=== PATIENT | male | born 1950 | race Caucasian/White ===

== ENCOUNTER → 2019-03-10 | Outpatient (CLI) | payer MEDICARE ==
[~2019-03-10] MED LIST: ATOR10TA60 PO; LISI-338 PO; METO-239 PO; REGADENOSON 0.4 MG/5 ML DISP.SYRIN. IV ONE; TAMS0.4C2 PO
--- NOTE | 2019-03-10 09:07 | CARD ---
MR#: [id number] Date of Study: 03/10/2019 Ordering Physician: LEIGH GRIMM, Referring Physician: LEIGH GRIMM Tech: Monica Shook RDCS APPROVED REPORT EXAM: Two-dimensional and M-mode echocardiogram with Doppler and color Doppler. Other Information Quality : GoodHR: 70bpm Rhythm : NSR INDICATION Chest Pain 2D DIMENSIONS RVDd4.0 (2.9-3.5cm)Left Atrium(2D)4.8 (1.6-4.0cm) IVSd1.4 (0.7-1.1cm)Aortic Root(2D)2.9 (2.0-3.7cm) LVDd4.9 (3.9-5.9cm)LVOT Diameter2.0 (1.8-2.4cm) PWd0.7 (0.7-1.1cm)IVSs2.0 (0.8-1.2cm) LVDs3.1 (2.5-4.0cm)FS (%) 36.2 % PWs1.2 (0.8-1.2cm)SV75.1 ml LVEF(%)65.7 (>50%) Aortic Valve AoV Peak Donovan.116.1cm/sAoV VTI26.6cm AO Peak GR.5.4mmHgLVOT Peak Donovan.74.6cm/s LVOT VTI 17.93cmAO Mean GR.3mmHg DYLAN (VMAX)1.57gj6UCA (VTI)2.19cm2 Mitral Valve MV E Aybrncfj72.4cm/sMV DECEL DGUZ558wg MV A Kvcpzzry55.4cm/sMV BAP30kf E/A Ratio1.3MVA (PHT)3.24cm2 TDI E/Lateral E'5.9E/Medial E'8.2 Pulmonary Valve PV Peak Cqvstckq135.7cm/sPV Peak Grad.6mmHg Tricuspid Valve TR P. Hxubialt935ot/sRAP ZZWDBPLE8smCs TR Peak Gr.59yjYdWPDQ45rtBo LEFT VENTRICLE The left ventricle is normal size. There is mild concentric left ventricular hypertrophy. The left ve ntricular systolic function is normal. The Ejection Fraction is 55-60%. There is normal LV segmental wall motion. Transmitral Doppler flow pattern is Grade II-pseudonormal filling dynamics. RIGHT VENTRICLE The right ventricle is mildly dilated. There is normal right ventricular wall thickness. The right ve ntricular systolic function is normal. ATRIA The left atrium is mildly dilated. The right atrium is moderately dilated. The interatrial septum is intact with no evidence for an atrial septal defect or patent foramen ovale as noted on 2-D or Dopple r imaging. AORTIC VALVE The aortic valve is trileaflet. The aortic valve is mildly calcified. Doppler and Color Flow revealed no significant aortic regurgitation. There is no significant aortic valvular stenosis. MITRAL VALVE The mitral valve is mildly thickened. There is no evidence of mitral valve prolapse. There is no mitr al valve stenosis. Doppler and Color-flow revealed trace to mild mitral regurgitation. TRICUSPID VALVE The tricuspid valve is normal in structure and function. Doppler and Color Flow revealed mild tricusp id regurgitation. The PA pressure was estimated at 24 mmHg. There is no tricuspid valve prolapse or v egetation. There is no tricuspid valve stenosis. PULMONIC VALVE The pulmonary valve is normal in structure and function. Doppler and Color Flow revealed trace pulmon ic valvular regurgitation. There is no pulmonic valvular stenosis. GREAT VESSELS The aortic root is normal in size. The ascending aorta is normal in size. The IVC is normal in size a nd collapses >50% with inspiration. PERICARDIAL EFFUSION There is no evidence of significant pericardial effusion. Critical Notification Critical Value: No <Conclusion> The left ventricular systolic function is normal. The Ejection Fraction is 55-60%. There is normal LV segmental wall motion. Trace to mild mitral regurgitation. Mild tricuspid regurgitation. The PA pressure was estimated at 24 mmHg. There is no evidence of significant pericardial effusion. Signed by : Leigh Grimm, Electronically Approved : 03/10/2019 09:07:32
--- NOTE | 2019-03-10 11:42 | RAD ---
MR#: [id number] Date of Study: 03/10/2019 Ordering Physician: LEIGH FISH, Referring Physician: ROSARIO BARBER Tech: JULISSA Schaeffer APPROVED REPORT Test Type: Pharmacological Stress Nurse/Tech: Iris Emerson R.N. Test Indications: CAD, dyspnea Cardiac History: CABG 2008, htn Medications: see ehr Medical History: see ehr Resting ECG: SR Resting Heart Rate: 62 bpm Resting Blood Pressure: 133/77mmHg Pretest Chest Pain: No chest pain Nurse/Tech Notes lungs cta, heart tones regular Consent: The procedure was explained to the patient in lay terms. Informed consent was witnessed. Eliud eout was entered into [facility]. History and Stress Test performed by ORI Mahan, IRVING (R) (N) Pharm. Details Pharmacologic stress testing was performed using 0.4mg per 5ml of regadenoson given intravenously ove r 7-10 seconds. Stress Symptoms No chest pain or symptoms. POST EXERCISE Reason for Termination: Infusion complete Target HR: No Max HR: 78 bpm Max Blood Pressure: 136/76mmHg Chest Pain: No. Arrhythmia: No. ST Change: No. INTERPRETATION Stress EKG Conclusion: The resting EKG shows a sinus rhythm with poor R-wave progression and nonspeci fic T-wave changes. The stress EKG shows no significant changes from baseline. No EKG evidence of stress-induced ischemia. Imaging Protocol IMAGE PROTOCOL: Rest Tc-99m/stress Tc-99m 1 day Rest: Stress: Viability: Radiopharm.Tc99m BeubmtmgkVa65g Sestamibi Dose10.8mCi 33mCi Duration 15min. 13min. Img Date 03/10/2019 03/10/2019 Inj-Img Yzaw21acc. 60min. Rest Admin Site:IV - Right AntecubitalAdministrator:JULISSA Schaeffer Stress Admin Site: IV - Right AntecubitalAdministrator: ORI Mahan, ARRT (R)(N) STRESS DATA End Diast. Vol.117.0mlLVEDV index BSA50.0ml End Syst. Vol.33.0mlLVESV index BSA14.0ml Myocardial Vhiu841.0gEject. Qrctgbmg91.0% Stress Scores Regional WT0.00Summed WT2.00 Regional WM0.00Summed WM5.00 LV Perfusion The stress scans showed no significant defects. The rest scans showed no significant defects. Nuclear imaging shows no reversible ischemia or infarct. Wall Motion Left ventricular systolic function is normal with no regional wall motion abnormalities and an ejecti on fraction of greater than 70%. LV Perf. Quant 17 Seg. SSS1.00 17 Seg. SRS1.00 17 Seg. SDS1.00 Stress Defect Extent (% LAD)0.00Rest Defect Extent (% LAD)0.00Rev. Defect Extent (% LAD)0.00 Stress Defect Extent (% LCX) 7.50Rest Defect Extent (% LCX)7.50Rev. Defect Extent (% LCX)6.30 Stress Defect Extent (% RCA)0.00Rest Defect Extent (% RCA)0.00Rev. Defect Extent (% RCA)0.00 Stress Defect Extent (% ALEX)1.30Rest Defect Extent (% ALEX)1.30Rev. Defect Extent (% ALEX)1.10 Conclusion 1. No EKG evidence of stress-induced ischemia. 2. Nuclear imaging shows no reversible ischemia or infarct. 3. Normal left ventricular systolic function with an ejection fraction of greater than 70%. 4. Low risk Lexiscan nuclear stress test. Signed by : Robi Hamilton MD Electronically Approved : 03/10/2019 11:41:40
--- NOTE | 2019-03-13 09:56 | RAD ---
MR#: [id number] Date of Study: 03/10/2019 Ordering Physician: LEIGH FISH, Referring Physician: LEIGH FISH Tech: Stefany Donovan RDMS, RVT APPROVED REPORT Patient Location: OUT-PATIENT Indications PAD VELOCITY AND DOPPLER WAVEFORM ANALYSIS RIGHT cm/secWaveformSeverity LEFT cm/secWaveform Severity pCFA 107.9TriphasicpCFA 104.4Triphasic Prof Fem Art. 103.7MonophasicProf Fem Art. 57.9Monophasic Fem Art Prox. 119.8TriphasicFem Art Prox. 121.9Triphasic Fem Art Mid. 113.0TriphasicFem Art Mid. 91.2Triphasic Fem Art Dist. 106.0TriphasicFem Art Dist. 76.2Triphasic Pop Art(Fossa) 99.5TriphasicPop Art(AK) 78.9Triphasic ASBESTOS SHINGLE INSPECTOR Mid.95.0TriphasicPTA Mid.104.4Triphasic ASBESTOS SHINGLE INSPECTOR Dist. 83.0TriphasicPTA Dist. 136.0Triphasic Per Art Mid. 69.0BiphasicPer Art Mid. 64.9Biphasic ТАТЬЯНА Prox. 74.0TriphasicATA Prox. 80.0Biphasic DPA 105TriphasicDPA 125Biphasic Findings Grayscale images of the bilateral common femoral, profunda, superficial femoral, popliteal and below- knee vessels are grossly unremarkable. There is mild diffuse intimal hyperplasia Spectral waveforms and color Doppler of the bilateral lower extremity arterial vessels are grossly wi thin normal limits with mostly triphasic and biphasic waveforms and three-vessel runoff below the kne e. No focal high-grade stenosis is identified. Critical Notification Critical Value: No <Conclusion> No significant lower extremity arterial disease. Signed by : Grover Parks, Electronically Approved : 03/13/2019 09:55:57
== END | disposition home or self-care (01) ==
LOC: NM 07:45
PROVIDERS: ATTEND Internal Medicine Cardiovascular Disease
DX: I08.3 Combined rheumatic disorders of mitral, aortic and tricuspid valves (principal); I10 Essential (primary) hypertension; I73.9 Peripheral vascular disease, unspecified; Z95.1 Presence of aortocoronary bypass graft
CPT/HCPCS: 78452; 93017; 93306; 93925; A9500; J2785

== ENCOUNTER → 2020-04-18 | Outpatient (CLI) | payer MEDICARE ==
[2019-06-21 15:00] VITALS: BP 160/84
[~2020-04-18] MED LIST changes: +ALLO100T PO; +ASPI325T11 PO; +ASPI81TA50 PO; +ATOR40TA59 PO; +CLOP75TA PO; +METO50TA4 PO; +MULT-505 PO; -REGADENOSON 0.4 MG/5 ML DISP.SYRIN. IV ONE
--- NOTE | 2020-04-19 10:27 | RAD ---
MR#: [id number] Date of Study: 04/18/2020 Ordering Physician: LEIGH FISH, Referring Physician: LEIGH FISH, Tech: Arely Charles, HELEN, RVT, RTR APPROVED REPORT Patient Location: OUT-PATIENT Laterality:Bilateral Indications Bruit Doppler Spectral Velocity Analysis Right Left pCCA 113/18 cm/spCCA 110/25 cm/s mCCA 104/21 cm/smCCA 110/28 cm/s dCCA 95/21 cm/sdCCA 100/21 cm/s Bulb 101/25 cm/sBulb 71/19 cm/s ECA 125/36 cm/sECA 171/21 cm/s pICA 106/26 cm/spICA 241/69 cm/s Faina 106/37 cm/smICA 197/67 cm/s dICA 115/33 cm/sdICA 126/49 cm/s Vert. 70/20 cm/sVert. 56/15 cm/s ICA/CCA 1.10ICA/CCA 2.19 Findings On the right grayscale which demonstrate mild diffuse atherosclerosis. Overall there is mild stenosi s of less than 50% based on velocity criteria in the internal carotid artery. Probable greater than 70% stenosis involving the right external carotid artery. Antegrade vertebral velocities with normal ICA to CCA ratios. On the left side there is likely a greater than 70% stenosis involving the proximal internal carotid artery with elevated ICA to CCA ratios of 2.2. The vertebral velocities are antegrade. The external carotid artery likely has mild to moderate disease. Critical Notification Critical Value: No <Conclusion> 1. Heavy calcification of the left carotid bulb with likely greater than 70% stenosis involving the internal carotid artery. Recommend further evaluation with a CT angiography of the head and neck. 2. Mild to moderate right internal carotid artery disease. Signed by : Grover Parks, Electronically Approved : 04/18/2020 12:59:32
== END ==
LOC: US 09:23 → EDBD 10:00
PROVIDERS: ATTEND Internal Medicine Cardiovascular Disease
DX: I65.23 Occlusion and stenosis of bilateral carotid arteries (principal); I25.10 Atherosclerotic heart disease of native coronary artery without angina pectoris
CPT/HCPCS: 93880

== ENCOUNTER → 2020-05-14 | Outpatient (CLI) | payer MEDICARE ==
[2019-06-21 15:00] VITALS: BP 160/84
[~2020-05-14] MED LIST changes: +CONTRAST GIVEN. MC PRN; +IOHEXOL 300 MG/ML 100ML VIAL. IV ONE; +REGADENOSON 0.4 MG/5 ML DISP.SYRIN. IV ONE
--- NOTE | 2020-05-14 14:11 | RAD ---
MR#: [id number] Date of Study: 05/14/2020 Ordering Physician: LEIGH FISH Referring Physician: ROSARIO BARBER Tech: RT Kristen Fritz) (N) APPROVED REPORT Test Type: Pharmacological Stress Nurse/Tech: DIPESH TURNER Test Indications: CHF Cardiac History: CHF, HTN, CABG, STENT- SEE EMR Medications: SEE EMR Medical History: SEE EMR Resting ECG: SR W/ 1ST DEGREE AVB Resting Heart Rate: 57 bpm Resting Blood Pressure: 167/81mmHg Pretest Chest Pain: No chest pain Nurse/Tech Notes S1S2, LUNGS CTA, DENIED CP OR SOA. VSS. Consent: The procedure was explained to the patient in lay terms. Informed consent was witnessed. Eliud eout was entered into [facility]. History and Stress Test performed by RT Scott (R) (N) Pharm. Details Pharmacologic stress testing was performed using 0.4mg per 5ml of regadenoson given intravenously ove r 7-10 seconds. Stress Symptoms VSS. PT C/O SOA BRIEFLY DURING TESTING, RESOLVED QUICKLY. DENIED CP. PT TOLERATED WELL. POST EXERCISE Reason for Termination: Infusion complete Max HR: 67 bpm Max Blood Pressure: 179/60mmHg Blood Pressure response to exercise: Normal blood pressure response during stress. Heart Rate response to exercise: WNL Chest Pain: No. Arrhythmia: No. NO SIGNIFICANT CHANGE FROM BASELINE EKG. ST Change: No. INTERPRETATION Stress EKG Conclusion: Baseline EKG showed sinus rhythm. No ischemic changes at peak stress. No arr hythmias. Rest: Stress: Viability: Radiopharm.Tc99m VljjaawezIl04a Sestamibi Aklp22lPv 30.4mCi Duration 15min. 15min. Img Date 05/14/2020 05/14/2020 Inj-Img Kjhf05ckk. 60min. Rest Admin Site:IV - Right AntecubitalAdministrator:RT Kristen Fritz)(N) Stress Admin Site: IV - Right AntecubitalAdministrator: RT Kristen Chavez)(N) STRESS DATA End Diast. Vol.117.0mlAv. Heart Rate63.0bpm End Syst. Vol.31.0mlCO Index BSA0.0L/min Myocardial Oxfc926.0gEject. Hmnnyeqi55.0% Stress Rates Pk. Fill Rate3.35EDV/secLVtime Pk. Fill 201.06msec Pk. Empty Rate3.28ESV/secLVtime Pk. Lebaf900.40msec 1/3 Pk. Fill1.19EDV/sec Stress Scores Regional WT0.00Summed WT0.00 Regional WM0.00Summed WM1.00 Study quality was good. Left Ventricular size was Normal at Rest and Stress. Lung uptake was . Left Ventricular ejection fraction is 71%. The rest and stress images show normal perfusion, normal contraction and thickening. LV Perf. Quant 17 Seg. SSS3.00 17 Seg. SRS2.00 17 Seg. SDS2.00 Stress Defect Extent (% LAD)0.00Rest Defect Extent (% LAD)0.00Rev. Defect Extent (% LAD)0.00 Stress Defect Extent (% LCX) 10.00Rest Defect Extent (% LCX)6.30Rev. Defect Extent (% LCX)0.00 Stress Defect Extent (% RCA)8.90Rest Defect Extent (% RCA)0.00Rev. Defect Extent (% RCA)0.00 Stress Defect Extent (% ALEX)3.50Rest Defect Extent (% ALEX)2.00Rev. Defect Extent (% ALEX)0.00 Conclusion 1. Regadenoson cardioisotope stress test did not show any evidence of ischemia or infarct. 2. Normal left ventricular systolic function with ejection fraction calculated at 71%. 3. Low risk for cardiac events. Signed by : Leigh Fish, Electronically Approved : 05/14/2020 14:10:49
--- NOTE | 2020-05-14 17:06 | RAD ---
CTA NECK History:Reason: CAROTID ARTERY STENOSIS / Spl. Instructions: IV OMNI 300 75 MLS / History: Technique: After bolus of intravenous contrast, volumetric CT data acquisition was acquired of the [facility]. Multiplanar reconstruction images to include MIP and 3-D reconstruction images are submitted. Exposure: One or more of the following individualized dose reduction techniques were utilized for thi s examination: 1. Automated exposure control 2. Adjustment of the mA and/or kV according to patient size 3. Use of iterative reconstruction technique. Comparison: None Any determination of stenosis is based on NASCET criteria. Findings: Aortic arch: Mild atheromatous plaque within the aortic arch and branch vessels. Common carotid arteries: No stenosis, occlusion or dissection. Internal carotid arteries: Dense calcified plaque within the right carotid bifurcation. Less than 50 percent narrowing of the right proximal internal carotid artery. Mild calcified plaque within the lef t carotid bifurcation. Irregularity with soft and calcified plaque at the origin of the left internal carotid artery. Ulcerative plaque within the proximal left internal carotid artery. 50 percent narro wing of the left proximal internal carotid artery. Mild additional calcified plaque. Tortuous right m id internal carotid artery. External carotid arteries: Narrowing of the right external carotid artery origin. Patent left externa l carotid artery. Vertebral arteries: Left vertebral artery arises from the aortic arch. Multifocal intracranial carotid siphon atheromatous calcified plaque with mild to moderate narrowing. Severe focal narrowing of the right paraclinoid internal carotid artery (series 5 image 986). Aplast ic right A1 segment. Patent anterior to indicating artery. Imaged lung apices are unremarkable. Soft tissues appear normal. Bones: Multilevel cervical spondylosis most prominent C5-C6 and C6-C7. Multilevel neuroforaminal narr owing. No high-grade canal stenosis. TMJ arthropathy. Impression: 1. Bilateral atheromatous plaque most prominent within the carotid bifurcations and carotid siphons. 2. 50 percent narrowing of the left proximal internal carotid artery with irregularity and ulcerativ e plaque. 3. Less than 50 percent narrowing of the right internal carotid artery origin. 4. Severe focal narrowing of the right paraclinoid internal carotid artery. 5. Additional multifocal mild to moderate narrowing of the bilateral internal carotid arteries withi n the head. Electronically signed by: Reggie Manning DO (05/14/2020 5:04 PM) [id number]
== END ==
LOC: CT 08:53
PROVIDERS: ATTEND Internal Medicine Cardiovascular Disease
DX: I65.23 Occlusion and stenosis of bilateral carotid arteries (principal); I77.1 Stricture of artery; I10 Essential (primary) hypertension; Z95.1 Presence of aortocoronary bypass graft; Z95.0 Presence of cardiac pacemaker
CPT/HCPCS: 70498; 78452; 93017; A9500; J2785; Q9967

== ENCOUNTER → 2020-08-06 | Outpatient (CLI) | payer MEDICARE ==
[2019-06-21 15:00] VITALS: BP 160/84
[~2020-08-06] MED LIST changes: -CONTRAST GIVEN. MC PRN; -IOHEXOL 300 MG/ML 100ML VIAL. IV ONE; -LISI-338 PO; +LISI-517 PO; -REGADENOSON 0.4 MG/5 ML DISP.SYRIN. IV ONE
== END ==
LOC: LAB 12:24
PROVIDERS: ATTEND Internal Medicine Cardiovascular Disease
DX: Z01.812 Encounter for preprocedural laboratory examination (principal); R94.39 Abnormal result of other cardiovascular function study; Z20.822 Contact with and (suspected) exposure to COVID-19
CPT/HCPCS: U0003

== ENCOUNTER → 2020-09-09 | Outpatient (CLI) | payer MEDICARE ==
[2020-08-10 08:20] VITALS: BP 109/64
[~2020-09-09] MED LIST changes: +ASPI-630 PO; +DOCU-153 PO; +HYDR-2761 PO; +MAG30ORA2 PO; +SPIR25TA5 PO
== END ==
LOC: LAB 08:53
PROVIDERS: ATTEND Surgery
DX: Z01.812 Encounter for preprocedural laboratory examination (principal); Z20.822 Contact with and (suspected) exposure to COVID-19
CPT/HCPCS: U0003; U0005

== ENCOUNTER 2020-09-11 05:56 | Inpatient (IN) | payer MEDICARE ==
[2020-09-11] VITALS (15 sets, daily range): BP systolic 120–153; BP diastolic 58–73
[~2020-09-11 05:56] MED LIST changes: -DOCU-153 PO; -HYDR-2761 PO; -MAG30ORA2 PO; +ROPIVacaine 0.5% PF 20 ML VIAL. ONE
[2020-09-11] MEDS ORDERED: MORPHINE SULFATE 2 MG/ML VIAL. IVP PRN (06:00)
[2020-09-11] MEDS ORDERED: IV RINGERS,LACTATED 1000ML 1,000 ML IV SCH (06:00)
[2020-09-11] MEDS ORDERED: HEPARIN SODIUM 5,000 UNIT in IV RINGERS,LACTATED 500ML 500 ML IRR ONE (06:00)
[2020-09-11] MEDS ORDERED: fentaNYL PF VIAL 100 MCG/2 ML VIAL IVP PRN ×2 (06:00)
[2020-09-11] MEDS ORDERED: PROCHLORPERAZINE 10 MG/2 ML VIAL. IVP PRN (06:00)
[2020-09-11] MEDS ORDERED: HYDROmorphone 2 MG/ML VIAL IVP PRN (06:00)
[2020-09-11 06:42] LABS: CALCIUM 8.8 mg/dL (8.5-10.1); CREATININE 1.1 mg/dL (0.7-1.3); GFR 66.2; POTASSIUM 4.1 mmol/L (3.5-5.1)
[2020-09-11] MEDS ORDERED: LIDOCAINE 1% Multi-Dose 20 ML VIAL. ONE (07:00)
[2020-09-11] MEDS ORDERED: SURGICEL FIBRILLAR 1X2 EACH. ONE (07:00)
[2020-09-11 07:17] LABS: BASO % 0 % (0-3); EOS # 0.5 x10^3/uL (0.0-0.7); EOS % 6 % (0-3); HEMATOCRIT 37.7 % (39.0-53.0); HEMOGLOBIN 12.8 g/dL (13.0-17.5); LYMPH # 2.1 x10^3/uL (1.0-4.8); LYMPH % 26 % (24-48); MEAN CORPUSCULAR HEMOGLOBIN 33 pg (25-35); MEAN CORPUSCULAR HGB CONC 34 g/dL (31-37); MEAN CORPUSCULAR VOLUME 98 fL (79-100); MONO # 0.7 x10^3/uL (0.0-1.1); MONO % 9 % (0-9); NEUT # 4.7 x10^3/uL (1.8-7.7); NEUT % 59 % (31-73); PLATELET COUNT 137 x10^3/uL (140-400); RED BLOOD COUNT 3.83 x10^6/uL (4.30-5.70); RED CELL DISTRIBUTION WIDTH 13.7 % (11.5-14.5)
[2020-09-11] MEDS ORDERED: hydrALAZINE 20 MG/ML VIAL. IVP PRN (07:30)
[2020-09-11] MEDS ORDERED: LABETALOL 20 MG/4 ML DISP.SYRIN. IVP PRN (07:30)
[2020-09-11] MEDS ORDERED: DEXMEDETOMIDINE 400 MCG in IV NORMAL SALINE 100ML 96 ML IV PRN (07:30)
[2020-09-11] MEDS ORDERED: MORPHINE SULFATE 2 MG/ML VIAL. IV PRN (07:30)
[2020-09-11] MEDS: IV NORMAL SALINE 1000ML BAG 1,000 ML IV SCH ×3 (07:30→20:50)
[2020-09-11] MEDS ORDERED: niCARdipine INJ. IV ONE (08:03)
[2020-09-11] MEDS ORDERED: LIDOCAINE 1% PF 30 ML VIAL. ONE (08:06)
[2020-09-11] MEDS ORDERED: HEPARIN for IV BOLUS 10,000 UNIT/10 ML VIAL. ONE (08:31)
[2020-09-11] MEDS ORDERED: PHENYLEPHRINE in 0.9% NACL PF 1 MG/10 ML SYRINGE. IV ONE (08:50)
--- NOTE | 2020-09-11 09:15 | PREOP HP ---
DATE OF SERVICE: 09/11/2020 VASCULAR SURGERY HISTORY AND PHYSICAL UPDATE HISTORY OF PRESENT ILLNESS: The patient is a 69-year-old male with past medical history significant for coronary artery disease who presents today for elective repair of his left high-grade asymptomatic carotid stenosis. The patient underwent appropriate perioperative risk stratification with cardiology and was found to be an acceptable candidate to proceed with surgery. PAST MEDICAL HISTORY: Reviewed and is unchanged. PAST SURGICAL HISTORY: Reviewed and is unchanged. ALLERGIES: The patient has no known drug allergies. MEDICATION LIST: Reviewed and is unchanged. SOCIAL HISTORY: Reviewed and is unchanged. REVIEW OF SYSTEMS: A 14-system review of system was reviewed with him this morning and he has no pertinent positive review of systems findings. PHYSICAL EXAMINATION: VITAL SIGNS: This morning, he is afebrile. His vital signs are stable. GENERAL: He is a pleasant male in no apparent distress. He is alert and oriented x 3. NECK: Supple. He has normal range of motion and no neck rigidity. He does have positive bilateral carotid bruits. CARDIOVASCULAR: S1, S2 regular rate and rhythm. PULMONARY: Clear to auscultation bilaterally with normal effort and air movement. ABDOMEN: Obese but soft and nontender. EXTREMITIES: Intact with good proximal and distal pulses bilaterally. NEUROLOGIC: Grossly intact with no focal neurologic deficits. ASSESSMENT AND PLAN: High-grade asymptomatic left internal carotid stenosis. We will proceed with left carotid endarterectomy this morning. The details of the procedure were discussed with the patient and his at the bedside and all risks, benefits and alternatives were discussed. The patient is agreeable to proceed. ALEKSANDR/ALAN/JOHNSON ARAGON: Glory TID: [id number]
[2020-09-11] MEDS ORDERED: PROTAMINE 50 MG/5 ML VIAL. IV ONE (09:24)
--- NOTE | 2020-09-11 10:00 | PDOC ---
BRIEF OPERATIVE NOTE Date: Sep 11, 2020 Pre-Op Diagnosis Asymptomatic left carotid stenosis, > 70% Post-Op Diagnosis Same Procedure Performed Left carotid endarterectomy with bovine pericardial patch Surgeon Taco Erickson DO Supervisor Telephone Clerks JARETH Cardoza Anesthesiologist Govind Young CRNA Anesthesia Type: Local, Regional (cervical block) Blood Loss 50 mL Specimens Obtained Discarded Findings Did not tolerate clamp, therefore shunt was used with bovine pericardial patch. Post operatively he was neurologically intact with equal family practice physician assistant strength and tongue midline. Speech clear and fluent. Complications None Operative Note See dictated op note LARS STALLINGS Sep 11, 2020 10:00
--- NOTE | 2020-09-11 11:04 | PDOC1 ---
History and Physical Date of Admission Date of Admission DATE: 09/11/20 TIME: 11:02 Identification/Chief Complaint Chief Complaint post-op left CEA today, HC RECENT PCI/ CAD History of Present Illness History of Present Illness Mr. Kilgore is a 69 old male who was recently diagnosed with carotid artery stenosis and currently admitted for carotid endarterectomy by vascular surgery team He underwent stress test secondary to his history of coronary artery disease/CABG. in July this showed significant amount of inferior wall ischemia, he presented for cardiac catheterization that showed patent sequential W[place] to LAD/diagonal, patent SVG to OM/LCx with patent previously placed stent, known occlusion of SVG to PDA/PLV with significant 90 to 95% stenosis involving the distal segment of RCA. He underwent successful PCI/drug-eluting stent placement to RCA. 08-09-20 Seen in PACU for Dr Erickson request today underwent appropriate perioperative risk stratification with cardiology and was found to be an acceptable candidate to proceed with surgery. Seen in PACU , mildly sedated Past Medical History Cardiovascular: CAD, HTN, Hyperlipidemia Pulmonary: Asthma CENTRAL NERVOUS SYSTEM: Other GI: No pertinent hx, Peptic Ulcer disease Heme/Onc: No pertinent hx Hepatobiliary: No pertinent hx Psych: No pertinent hx Musculoskeletal: low back pain, Osteoarthritis Rheumatologic: No pertinent hx Infectious disease: No pertinent hx ENT: No pertinent hx Renal/: No pertinent hx, Benign prostatic enlarg. Endocrine: No pertinent hx Past Surgical History Past Surgical History: CABG, Other Family History Family History: Coronary Artery Disease, High Cholestrol, Hypertension Social History ALCOHOL: none Drugs: None Current Medications Current Medications Current Medications Cefazolin Sodium 1 gm/Sodium Chloride 500 ml @ 500 mls/hr 1X ONCE IRR ; Start 09/11/20 at 06:00; Stop 09/11/20 at 06:59; Status DC Heparin Sodium (Porcine) 5000 unit/Ringer's Solution 505 ml @ 505 mls/hr 1X ONCE IRR ; Start 09/11/20 at 06:00; Stop 09/11/20 at 06:59; Status DC Fentanyl Citrate (Fentanyl 2ml Vial) 25 mcg PRN Q5MIN PRN IVP MILD PAIN 1-3; Start 09/11/20 at 06:00; Stop 09/11/20 at 19:00 Fentanyl Citrate (Fentanyl 2ml Vial) 50 mcg PRN Q5MIN PRN IVP MODERATE PAIN 4- 6; Start 09/11/20 at 06:00; Stop 09/11/20 at 19:00 Morphine Sulfate (Morphine Sulfate) 1 mg PRN Q10MIN PRN IVP SEVERE PAIN 7-10; Start 09/11/20 at 06:00; Stop 09/11/20 at 19:00 Ringer's Solution 1,000 ml @ 30 mls/hr Q24H IV Last administered on 09/11/20at 06:32; Start 09/11/20 at 06:00; Stop 09/11/20 at 17:59 Hydromorphone HCl (Dilaudid) 0.5 mg PRN Q10MIN PRN IVP SEVERE PAIN 7-10, 2nd CHOICE; Start 09/11/20 at 06:00; Stop 09/11/20 at 19:00 Prochlorperazine Edisylate (Compazine) 5 mg PACU PRN PRN IVP NAUSEA, MRX1; Start 09/11/20 at 06:00; Stop 09/11/20 at 19:00 Cefazolin Sodium/ Dextrose 50 ml @ 100 mls/hr 1X PREOP PRN IV PRIOR TO PROCEDURE; Start 09/11/20 at 06:00; Stop 09/11/20 at 10:29; Status DC Ropivacaine (Naropin 0.5%) 20 ml STK-MED ONCE .ROUTE ; Start 09/11/20 at 04:54; Stop 09/11/20 at 06:54; Status DC Lidocaine HCl (Lidocaine 1% 20ml Vial) 20 ml STK-MED ONCE .ROUTE Last administered on 09/11/20at 08:13; Start 09/11/20 at 07:00; Stop 09/11/20 at 07:01; Status DC Cellulose (Surgicel Fibrillar 1x2) 1 each STK-MED ONCE .ROUTE Last administered on 09/11/20at 08:14; Start 09/11/20 at 07:00; Stop 09/11/20 at 07:01; Status DC Dexmedetomidine HCl 400 mcg/ Sodium Chloride 100 ml @ 0 mls/hr CONT PRN IV PER PROTOCOL; Start 09/11/20 at 07:30 Sodium Chloride 1,000 ml @ 75 mls/hr [id number] IV ; Start 09/11/20 at 07:30 Labetalol HCl (Normodyne Iv Push) 10 mg PRN Q1HR PRN IVP HYPERTENSION; Start 09/11/20 at 07:30 Acetaminophen/ Hydrocodone Bitart (Lortab 5/325) 1 tab PRN Q4HRS PRN PO PAIN; Start 09/11/20 at 07:30 Morphine Sulfate (Morphine Sulfate) 2 mg PRN Q2HR PRN IV PAIN; Start 09/11/20 at 07:30 Hydralazine HCl (Apresoline Inj) 10 mg PRN Q2HRS PRN IVP ELEVATED BP, SEE COMMENTS; Start 09/11/20 at 07:30 Cefazolin Sodium/ Dextrose 50 ml @ 100 mls/hr Q8HRS IV ; Start 09/11/20 at 14:00; Stop 09/11/20 at 22:29 Nicardipine HCl (Cardene) 25 mg STK-MED ONCE IV ; Start 09/11/20 at 08:03; Stop 09/11/20 at 08:03; Status DC Lidocaine HCl (Xylocaine 1% Pf 30ml Vial) 30 ml STK-MED ONCE .ROUTE Last administered on 09/11/20at 08:14; Start 09/11/20 at 08:06; Stop 09/11/20 at 08:07; Status DC Heparin Sodium (Porcine) (Heparin Sodium) 10,000 unit STK-MED ONCE .ROUTE ; Start 09/11/20 at 08:31; Stop 09/11/20 at 08:31; Status DC Phenylephrine HCl (PHENYLEPHRINE in 0.9% NACL PF) 1 mg STK-MED ONCE IV ; Start 09/11/20 at 08:50; Stop 09/11/20 at 08:50; Status DC Protamine Sulfate (Protamine) 50 mg STK-MED ONCE IV ; Start 09/11/20 at 09:24; Stop 09/11/20 at 09:25; Status DC Allopurinol (Zyloprim) 100 mg DAILY PO ; Start 09/12/20 at 09:00 Aspirin (Aspirin Chewable) 81 mg DAILY PO ; Start 09/12/20 at 09:00 Atorvastatin Calcium (Lipitor) 40 mg DAILY PO ; Start 09/12/20 at 09:00 Clopidogrel Bisulfate (Plavix) 75 mg DAILYWBKFT PO ; Start 09/12/20 at 08:00 Lisinopril (Prinivil) 5 mg DAILY PO ; Start 09/12/20 at 09:00 Metoprolol Succinate (Toprol Xl) 50 mg DAILY PO ; Start 09/12/20 at 09:00 Spironolactone (Aldactone) 25 mg DAILY PO ; Start 09/12/20 at 09:00 Tamsulosin HCl (Flomax) 0.4 mg DAILY PO ; Start 09/12/20 at 09:00 Active Scripts Active Clopidogrel (Clopidogrel Bisulfate) 75 Mg Tablet 75 Mg PO DAILYWBKFT 30 Days Lisinopril 5 Mg Tablet 1 Tab PO DAILY 30 Days Reported Aspirin 81 Mg Tab.chew 81 Mg PO DAILY Spironolactone 25 Mg Tablet 1 Tab PO DAILY Atorvastatin Calcium 40 Mg Tablet 1 Tab PO DAILY Toprol XL (Metoprolol Succinate) 50 Mg Tab.er.24h 50 Mg PO DAILY Allopurinol 100 Mg Tablet 1 Tab PO DAILY Once Daily (Multivitamin) 1 Each Tablet 1 Tab PO DAILY 30 Days Tamsulosin Hcl 0.4 Mg Cap.er.24h 1 Cap PO DAILY Allergies Allergies: Coded Allergies: No Known Drug Allergies (Unverified , 10/03/15) ROS Review of System 14 pt ros otherwise neg General: No: Chills, Night Sweats, Fatigue, Malaise, Appetite, Other PSYCHOLOGICAL ROS: No: Anxiety, Behavioral Disorder, Concentration difficultie, Decreased libido, Depression, Disorientation, Hallucinations, Hostility, Irritablity, Memory difficulties, Mood Swings, Obsessive thoughts, Physical abuse, Sexual abuse, Sleep disturbances, Suicidal ideation, Other Eyes: No Blurry vision, No Decreased vision, No Double vision, No Dry eyes, No Excessive tearing, No Eye Pain, No Itchy Eyes, No Loss of vision, No Photophobia, No Scotomata, No Uses contacts, No Uses glasses, No Other HEENT: No: Heacaches, Visual Changes, Hearing change, Nasal congestion, Nasal discharge, Oral lesions, Sinus pain, Sore Throat, Epistaxis, Sneezing, Snoring, Tinnitus, Vertigo, Vocal changes, Other ALLERGY AND IMMUNOLOGY: No: Hives, Insect Bite Sensitivity, Itchy/Watery Eyes, Nasal Congestion, Post Nasal Drip, Seasonal Allergies, Other Hematological and Lymphatic: No: Bleeding Problems, Blood Clots, Blood Transfus ions, Brusing, Night Sweats, Pallor, Swollen Lymph Nodes, Other ENDOCRINE: No: Breast Changes, Galactorrhea, Hair Pattern Changes, Hot Flashes, Malaise/lethargy, Mood Swings, Palpitations, Polydipsia/polyuria, Skin Changes, Temperature Intolerance, Unexpected Weight Changes, Other Breast: No New/Changing Breast Lumps, No Nipple changes, No Nipple discharge, No Other Respiratory: No: Cough, Hemoptysis, Orthopnea, Pleuritic Pain, Shortness of b reath, SOB with excertion, Sputum Changes, Stridor, Tachypnea, Wheezing, Other Cardiovascular: No Chest Pain, No Palpitations, No Orthopnea, No Paroxysmal Noc. Dyspnea, No Edema, No Lt Headedness, No Other Gastrointestinal: No Nausea, No Vomiting, No Abdominal Pain, No Diarrhea, No Constipation, No Melena, No Hematochezia, No Other Genitourinary: No Dysuria, No Frequency, No Incontinence, No Hematuria, No Retention, No Discharge, No Urgency, No Pain, No Flank Pain, No Other, No , No , No , No , No , No , No Musculoskeletal: No Gait Disturbance, No Joint Pain, No Joint Stiffness, No Joint Swelling, No Muscle Pain, No Muscular Weakness, No Pain In:, No Swelling In:, No Other Neurological: No Behavorial Changes, No Bowel/Bladder ControlChng, No Confusion, No Dizziness, No Gait Disturbance, No Headaches, No Impaired Coord/balance, No Memory Loss, No Numbness/Tingling, No Seizures, No Speech Problems, No Tremors, No Visual Changes, No Weakness, No Other Skin: No Dry Skin, No Eczema, No Hair Changes, No Lumps, No Mole Changes, No Mottling, No Nail Changes, No Pruritus, No Rash, No Skin Lesion Changes, No Other, No Acne Physical Exam Physical Exam left carotid site dry dressing General: Alert, Oriented X3, Cooperative, No acute distress HEENT: PERRLA, EOMI, Mucous membr. moist/pink Lungs: Clear to auscultation, Normal air movement Heart: S1S2, RRR, no thrills, no rubs, no gallops, no murmurs Cardiovascular: S1, S2 Breasts: Not examined Abdomen: Normal bowel sounds, Soft, No tenderness, No hepatosplenomegaly Rectal Exam: not examined Extremities: No cyanosis Neuro: Normal speech, Sensation intact, Cranial nerves 3-12 NL Psych/Mental Status: Mental status NL, Mood NL Vitals Vitals Vital Signs Date Time Temp Pulse Resp B/P (MAP) Pulse Ox O2 Delivery O2 Flow Rate FiO2 09/11/20 10:30 97.7 50 17 124/64 96 Nasal Cannula 4 97.7 129/54 Labs Labs Laboratory Tests Test 09/11/20 06:27 White Blood Count 8.0 x10^3/uL (4.0-11.0) Red Blood Count 3.83 x10^6/uL (4.30-5.70) Hemoglobin 12.8 g/dL (13.0-17.5) Hematocrit 37.7 % (39.0-53.0) Mean Corpuscular Volume 98 fL (79-100) Mean Corpuscular Hemoglobin 33 pg (25-35) Mean Corpuscular Hemoglobin Concent 34 g/dL (31-37) Red Cell Distribution Width 13.7 % (11.5-14.5) Platelet Count 137 x10^3/uL (140-400) Neutrophils (%) (Auto) 59 % (31-73) Lymphocytes (%) (Auto) 26 % (24-48) Monocytes (%) (Auto) 9 % (0-9) Eosinophils (%) (Auto) 6 % (0-3) Basophils (%) (Auto) 0 % (0-3) Neutrophils # (Auto) 4.7 x10^3/uL (1.8-7.7) Lymphocytes # (Auto) 2.1 x10^3/uL (1.0-4.8) Monocytes # (Auto) 0.7 x10^3/uL (0.0-1.1) Eosinophils # (Auto) 0.5 x10^3/uL (0.0-0.7) Basophils # (Auto) 0.0 x10^3/uL (0.0-0.2) Sodium Level 142 mmol/L (136-145) Potassium Level 4.1 mmol/L (3.5-5.1) Chloride Level 108 mmol/L (98-107) Carbon Dioxide Level 24 mmol/L (21-32) Anion Gap 10 (6-14) Blood Urea Nitrogen 16 mg/dL (8-26) Creatinine 1.1 mg/dL (0.7-1.3) Estimated GFR (Cockcroft-Gault) 66.2 Glucose Level 103 mg/dL (70-99) Calcium Level 8.8 mg/dL (8.5-10.1) Laboratory Tests Test 09/11/20 06:27 White Blood Count 8.0 x10^3/uL (4.0-11.0) Red Blood Count 3.83 x10^6/uL (4.30-5.70) Hemoglobin 12.8 g/dL (13.0-17.5) Hematocrit 37.7 % (39.0-53.0) Mean Corpuscular Volume 98 fL (79-100) Mean Corpuscular Hemoglobin 33 pg (25-35) Mean Corpuscular Hemoglobin Concent 34 g/dL (31-37) Red Cell Distribution Width 13.7 % (11.5-14.5) Platelet Count 137 x10^3/uL (140-400) Neutrophils (%) (Auto) 59 % (31-73) Lymphocytes (%) (Auto) 26 % (24-48) Monocytes (%) (Auto) 9 % (0-9) Eosinophils (%) (Auto) 6 % (0-3) Basophils (%) (Auto) 0 % (0-3) Neutrophils # (Auto) 4.7 x10^3/uL (1.8-7.7) Lymphocytes # (Auto) 2.1 x10^3/uL (1.0-4.8) Monocytes # (Auto) 0.7 x10^3/uL (0.0-1.1) Eosinophils # (Auto) 0.5 x10^3/uL (0.0-0.7) Basophils # (Auto) 0.0 x10^3/uL (0.0-0.2) Sodium Level 142 mmol/L (136-145) Potassium Level 4.1 mmol/L (3.5-5.1) Chloride Level 108 mmol/L (98-107) Carbon Dioxide Level 24 mmol/L (21-32) Anion Gap 10 (6-14) Blood Urea Nitrogen 16 mg/dL (8-26) Creatinine 1.1 mg/dL (0.7-1.3) Estimated GFR (Cockcroft-Gault) 66.2 Glucose Level 103 mg/dL (70-99) Calcium Level 8.8 mg/dL (8.5-10.1) Images Images Pulmonary Vein S1 Velocity 49.2cm/s D2 Velocity 73.9cm/s PVa duration 97msec LEFT VENTRICLE The left ventricle is normal size. There is mild to moderate concentric left ventricular hypertrophy. The left ventricular systolic function is normal and the ejection fraction is within normal range. EF 55% Septal motion consistent with post-operative state. Otherwise, grossly normal wall motion. Tissue Doppler imaging reveals moderate left ventricular diastolic dysfunction. There is no ventricular septal defect visualized. RIGHT VENTRICLE The right ventricle is mildly to moderately dilated. The right ventricular systolic function is normal. ATRIA The left atrium is moderately dilated. The right atrium is moderately dilated. The interatrial septum is intact with no evidence for an atrial septal defect or patent foramen ovale as noted on 2-D or Doppler imaging. AORTIC VALVE The aortic valve is calcified but opens well. Doppler and Color Flow revealed no significant aortic regurgitation. There is no significant aortic valvular stenosis. MITRAL VALVE The mitral valve is mildly thickened. There is no mitral valve stenosis. Doppler and Color-flow revealed mild mitral regurgitation. TRICUSPID VALVE The tricuspid valve is normal in structure and function. Doppler and Color Flow revealed mild tricuspid regurgitation. PAP is estimated at 47 mmHg. There is no tricuspid valve stenosis. PULMONIC VALVE Doppler and Color Flow revealed mild pulmonic valvular regurgitation. There is no pulmonic valvular stenosis. GREAT VESSELS The aortic root is normal in size. The ascending aorta is normal in size. The pulmonary artery is normal. The IVC is normal in size and collapses >50% with inspiration. PERICARDIAL EFFUSION There is no pleural effusion. There is no evidence of significant pericardial effusion. Critical Notification Critical Value: No <Conclusion> The left ventricular systolic function is normal and the ejection fraction is within normal range. EF 55% Septal motion consistent with post-operative state. Otherwise, grossly normal wall motion. The right ventricle is mildly to moderately dilated. Doppler and Color Flow revealed mild tricuspid regurgitation. PAP is estimated at 47 mmHg. Signed by : Lissette Parks, Electronically Approved : 06/20/2019 13:06:34 DICTATED and SIGNED BY: LISSETTE PARKS MD DATE: 06/20/19 1258 APPROVED REPORT Technologist: RT Yoshi(R)() Nurse: Iris Emerson RN Procedure(s) performed: 1. Left heart catheterization, selective coronary angiography and selective angiography of the bypass grafts 2. Successful PCI/drug-eluting stent placement to the right coronary artery MODERATE SEDATION TIME: 86 MINUTES FLUORO TIME: 13.1 MIN DOSE: 138 GYCM2 CONTRAST: 176CC VISI INDICATION The indication(s) include : Preoperative evaluation prior to carotid endarterectomy, positive stress test in a patient with known history of coronary disease s/p CABG. [facility] Clinical Frailty Scale [facility] Clinical Frailty Scale: Mildly Frail Heart Failure Heart Failure: No CASE TECHNIQUE IV conscious sedation was used throughout procedure with appropriate monitoring and was performed in the presence of a registered nurse who was an independent trained observer other than the physician performing the procedure. During this case, Fluoroscopy and low osmolar contrast were used for imaging. Specimen(s) Removed: No Estimated Blood loss: 15 cc's. PROCEDURE NARRATIVE After explaining the risk, benefits and alternative options, informed consent was obtained from patient. Patient was brought to the cardiac Marker Delivery and his right groin was prepped and draped in the usual fashion. 20 cc of 2% lidocaine was infiltrated into the skin and subcutaneous tissues for local anesthesia. Arterial access was obtained in the right common femoral artery and a 6 Palestinian sheath was inserted. 6 Palestinian JL4 and 6 Palestinian JR4 catheters were used to perform selective angiography of the left and right coronary arteries. 6 Palestinian JR4 catheter was then used to perform selective angiography of the saphenous vein graft to the obtuse marginal branch and sequential left internal mammary artery graft to left anterior descending artery and the diagonal branch. The saphenous vein 'Y' graft to PDA/PLV branches of right coronary artery was known to be occluded from prior angiography and hence was not engaged. LVEDP and transaortic gradients were measured. FINDINGS 1. Hemodynamics: Left ventricular end-diastolic pressure 22 mmHg. No pullback gradient across the aortic valve. 2. Coronary angiography: a. The left main coronary artery arose from the left sinus of Valsalva, gave rise to the left anterior descending and left circumflex arteries and did not show any significant stenosis. b. The left anterior descending artery showed 70% stenosis in the proximal segment and a long 90% stenosis in the midsegment. The diagonal branch showed 90% stenosis in the proximal segment and 100% occlusion in the midsegment. c. The left circumflex artery showed 70% stenosis in the proximal segment and a long 70 to 80% stenosis in the midsegment. d. The right coronary artery showed tandem 40 and a long 50% stenosis in the midsegment. There was a critical 90 to 95% stenosis in the very distal segment near the bifurcation. e. The saphenous vein 'Y' graft to posterior descending and posterolateral branches of right coronary artery was known to be occluded from prior cardiac catheterization. f. The saphenous vein graft to the obtuse marginal branch of left circumflex artery did not show any significant stenosis with a patent previously placed stent in the ostial/proximal segment. g. The sequential left internal mammary artery graft to the left anterior descending artery and the diagonal branch was widely patent. INTERVENTION The right coronary artery was engaged with a 6 Palestinian AL 0.75 guide catheter. The critical stenosis in the distal segment of the right coronary artery was crossed into the posterolateral branch with a 0.014 inch Unified guidewire. This was predilated with a 2.5 x 15 mm Euphora balloon following which this was successfully treated with a 2.5 x 15 mm resolute Fabio drug-elut ing stent that extended from the distal RCA into the posterolateral branch. Follow-up angiography showed resolution of the stenosis to 0% with TONY-3 distal flow. Patient tolerated the procedure well. Hemostasis was attempted using Angio-Seal but this failed. This was subsequently achieved using FemStop. Patient tolerated the procedure well. There were no immediate complications. TONY Flow VTE Prophylaxis Ordered VTE Prophylaxis Devices: Yes VTE Pharmacological Prophylaxi: No Assessment/Plan Assessment/Plan impression ======== High-grade asymptomatic left internal carotid stenosis. with left carotid endarterectomy this morning. 09-11 recent sequential [place] to LAD/diagonal, patent SVG to OM/LCx with patent previously placed stent, known occlusion of SVG to PDA/PLV with significant 90 to 95% stenosis involving the distal segment of RCA. He underwent successful PCI/drug-eluting stent placement to RCA. 08-09-20 HX HYPERLIPIDEMIA ON statin, asa CAD; past CABG HTN: controlled plan ADMIT CVC BED consult vascular consult cardiology re recent PCI home meds scd's dvt prophylaxis [place] q 4 hrs HOME MEDS no lovenox, defer to vascular surgery Justifications for Admission Other Justification MARGOT LEIVA MD Sep 11, 2020 11:04
[2020-09-11] MEDS ORDERED: ACETAMINOPHEN 325 MG TABLET. PO PRN (11:15)
[2020-09-11] MEDS ORDERED: ALBUTEROL SULFATE 2.5 MG/3 ML NEBU. NEB PRN (11:15)
[2020-09-11] MEDS ORDERED: ACETAMINOPHEN 650 MG SUPP.RECT. PR PRN (11:15)
[2020-09-11] MEDS ORDERED: DOCUSATE SODIUM 100 MG CAPSULE. PO PRN (11:15)
[2020-09-11] MEDS ORDERED: MAG HYDROX/ALUMINUM HYD/SIMETH 30 ML ORAL.SUSP PO PRN (11:15)
[2020-09-11] MEDS ORDERED: guaiFENesin ORAL 200 MG/10 ML LIQUID. PO PRN (11:15)
[2020-09-11] MEDS ORDERED: 0.9 % SODIUM CHLORIDE 10 ML DISP.SYRIN. IV PRN (11:15)
[2020-09-11] MEDS ORDERED: ONDANSETRON PF 4 MG/2 ML VIAL. IV PRN (11:15)
--- NOTE | 2020-09-11 11:24 | PDOC2 ---
OCTAVIANO MANRIQUEZ IT INFRASTRUCTURE CONSULTANT 09/11/20 1124: CARDIAC CONSULT DATE OF CONSULT Date of Consult DATE: 09/11/20 TIME: 11:14 REASON FOR CONSULT Reason for Consult: Recent PCI/stent REFERRING PHYSICIAN Referring Physician: Dr. Garcia SOURCE Source: Chart review, Patient HISTORY OF PRESENT ILLNESS HISTORY OF PRESENT ILLNESS This is a 69 yo male, with a history of CAD s/p PCI/stent and high-grade asymptomatic carotid stenosis when presented for carotid endarterectomy. 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 He denies any chest pain, palpitations, dizziness, diaphoresis, or shortness of breath. Reports compliance with medications/. PAST MEDICAL HISTORY Past Medical History Cardiovascular: CAD, HTN, Hyperlipidemia, carotid disease Pulmonary: Asthma CENTRAL NERVOUS SYSTEM: Other (No pertinent history) GI: Peptic Ulcer disease Heme/Onc: No pertinent hx Hepatobiliary: No pertinent hx Psych: No pertinent hx Musculoskeletal: low back pain, Osteoarthritis Rheumatologic: No pertinent hx Infectious disease: No pertinent hx ENT: No pertinent hx Renal/: Benign prostatic enlarg. Endocrine: No pertinent hx Dermatology: No pertinent hx PAST SURGICAL HISTORY Past Surgical History CABG, Other (lumbar laminectomy) FAMILY HISTORY Family History: Coronary Artery Disease (father ) SOCIAL HISTORY Social History Smoke: No ALCOHOL: none Drugs: None Lives: with Family (spouse) CURRENT MEDICATIONS CURRENT MEDICATIONS Current Medications Medications (Trade) Dose Ordered Sig/Roberth Route PRN Reason Start Time Stop Time Status Last Admin Dose Admin Ringer's Solution 1,000 ml @ 30 mls/hr Q24H IV 09/11/20 06:00 09/11/20 17:59 09/11/20 06:32 Lidocaine HCl (Lidocaine 1% 20ml Vial) 20 ml STK-MED ONCE .ROUTE 09/11/20 07:00 09/11/20 07:01 DC 09/11/20 08:13 Cellulose (Surgicel Fibrillar 1x2) 1 each STK-MED ONCE .ROUTE 09/11/20 07:00 09/11/20 07:01 DC 09/11/20 08:14 Lidocaine HCl (Xylocaine 1% Pf 30ml Vial) 30 ml STK-MED ONCE .ROUTE 09/11/20 08:06 09/11/20 08:07 DC 09/11/20 08:14 ALLERGIES ALLERGIES: Coded Allergies: No Known Drug Allergies (Unverified , 10/03/15) ROS Review of System 14 point ROS conducted with pertinent positives noted above in hPi PHYSICAL EXAM PHYSICAL EXAM General: Alert, Oriented X3, Cooperative, No acute distress HEENT: Atraumatic, Mucous membr. moist/pink. left neck dressing, IDANIA intact Lungs: Clear to auscultation, Normal air movement Heart: Regular rate (SB rate near 50), Normal S1, Normal S2, Other (2/6 systolic murmur to LLS border) Abdomen: Soft, No tenderness Extremities: No cyanosis, trace bilateral LE edema Skin: No breakdown, No significant lesion Neuro: Normal speech, Sensation intact Psych/Mental Status: Mental status NL, Mood NL MUSCULOSKELETAL: Osteoarthritic changes both hands VITALS/I&O VITALS/I&O: Vital Signs Date Time Temp Pulse Resp B/P (MAP) Pulse Ox O2 Delivery O2 Flow Rate FiO2 09/11/20 11:00 Nasal Cannula 4 09/11/20 11:00 97.7 48 16 133/67 98 97.7 LABS Lab: Laboratory Tests Test 09/11/20 06:27 White Blood Count 8.0 x10^3/uL (4.0-11.0) Red Blood Count 3.83 x10^6/uL (4.30-5.70) L Hemoglobin 12.8 g/dL (13.0-17.5) L Hematocrit 37.7 % (39.0-53.0) L Mean Corpuscular Volume 98 fL (79-100) Mean Corpuscular Hemoglobin 33 pg (25-35) Mean Corpuscular Hemoglobin Concent 34 g/dL (31-37) Red Cell Distribution Width 13.7 % (11.5-14.5) Platelet Count 137 x10^3/uL (140-400) L Neutrophils (%) (Auto) 59 % (31-73) Lymphocytes (%) (Auto) 26 % (24-48) Monocytes (%) (Auto) 9 % (0-9) Eosinophils (%) (Auto) 6 % (0-3) H Basophils (%) (Auto) 0 % (0-3) Neutrophils # (Auto) 4.7 x10^3/uL (1.8-7.7) Lymphocytes # (Auto) 2.1 x10^3/uL (1.0-4.8) Monocytes # (Auto) 0.7 x10^3/uL (0.0-1.1) Eosinophils # (Auto) 0.5 x10^3/uL (0.0-0.7) Basophils # (Auto) 0.0 x10^3/uL (0.0-0.2) Sodium Level 142 mmol/L (136-145) Potassium Level 4.1 mmol/L (3.5-5.1) Chloride Level 108 mmol/L (98-107) H Carbon Dioxide Level 24 mmol/L (21-32) Anion Gap 10 (6-14) Blood Urea Nitrogen 16 mg/dL (8-26) Creatinine 1.1 mg/dL (0.7-1.3) Estimated GFR (Cockcroft-Gault) 66.2 Glucose Level 103 mg/dL (70-99) H Calcium Level 8.8 mg/dL (8.5-10.1) Laboratory Tests 09/11/20 06:27 Laboratory Tests 09/11/20 06:27 ECHOCARDIOGRAM ECHOCARDIOGRAM <Conclusion> The left ventricular systolic function is normal and the ejection fraction is within normal range. EF 55% Septal motion consistent with post-operative state. Otherwise, grossly normal wall motion. The right ventricle is mildly to moderately dilated. Doppler and Color Flow revealed mild tricuspid regurgitation. PAP is estimated at 47 mmHg. DATE: 06/20/19 1258 HEART CATH HEART CATH FINDINGS 1. Hemodynamics: Left ventricular end-diastolic pressure 22 mmHg. No pullback gradient across the aortic valve. 2. Coronary angiography: a. The left main coronary artery arose from the left sinus of Valsalva, gave rise to the left anterior descending and left circumflex arteries and did not show any significant stenosis. b. The left anterior descending artery showed 70% stenosis in the proximal segment and a long 90% stenosis in the midsegment. The diagonal branch showed 90% stenosis in the proximal segment and 100% occlusion in the midsegment. c. The left circumflex artery showed 70% stenosis in the proximal segment and a long 70 to 80% stenosis in the midsegment. d. The right coronary artery showed tandem 40 and a long 50% stenosis in the midsegment. There was a critical 90 to 95% stenosis in the very distal segment near the bifurcation. e. The saphenous vein 'Y' graft to posterior descending and posterolateral branches of right coronary artery was known to be occluded from prior cardiac catheterization. f. The saphenous vein graft to the obtuse marginal branch of left circumflex ar marco did not show any significant stenosis with a patent previously placed stent in the ostial/proximal segment. g. The sequential left internal mammary artery graft to the left anterior descending artery and the diagonal branch was widely patent. Conclusion 1. Severe [place] vessel coronary disease s/p CABG as described above with patent sequential [place] to LAD/diagonal, patent SVG to OM/LCx with patent previously placed stent in ostial/proximal segment, previously known occlusion of saphenous vein 'Y' graft to PDA/PLV and a critical 90 to 95% stenosis involving the distal segment of the right coronary artery. 2. Successful PCI/drug-eluting stent placement to the distal segment of RCA. Recommendations 1. Aspirin 325 mg daily for 1 month followed by 81 mg daily. 2. Plavix 75 mg daily. 3. Cardiovascular risk factor modification. DATE: 08/09/20 [id number] ASSESSMENT/PLAN ASSESSMENT/PLAN 1. High-grade asymptomatic carotid stenosis; s/p left carotid endarterectomy with bovine pericardial patch 2. CAD s/p CABG and subsequent PCI/stent with most recent PCI/WILLIAM to distal RCA as noted above (08/09/20). clinically stable 3. Hypertension; controlled 4. Hyperlipidemia; statin 5. Sinus bradycardia; lowest 40. Mean near 50. No pauses Recommendations Secondary prevention measures including DAPT with ASA/Plavix Statin therapy Hold metoprolol for now with bradycardia Follow vascular recs Supportive care LEIGH FISH MD 09/12/20 1258: CARDIAC CONSULT ASSESSMENT/PLAN ASSESSMENT/PLAN Patient seen and examined 09/11/2020. 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 s/p left CEA for carotid artery stenosis -continue postop care per vascular surgery CAD s/p CABG and more recent PCI/WILLIAM to RCA, clinically stable Resume dual antiplatelet therapy if okay with vascular surgery team Follow-up with our office as scheduled OCTAVIANO MANRIQUEZ APRN Sep 11, 2020 11:24 LEIGH FISH MD Sep 12, 2020 12:58
--- NOTE | 2020-09-11 14:39 | OP ---
DATE OF SURGERY: 09/11/2020 SURGEON: Dr. Taco Erickson. UNIT ASSISTANT: JARETH Cardoza. PREOPERATIVE DIAGNOSIS: High-grade asymptomatic left internal carotid stenosis. POSTOPERATIVE DIAGNOSIS: High-grade asymptomatic left internal carotid stenosis. PROCEDURE: Left carotid endarterectomy with bovine patch angioplasty and intraoperative shunt. ANESTHESIA: Local with MAC. SPECIMENS: None. ESTIMATED BLOOD LOSS: 50 mL. COMPLICATIONS: None. PREOPERATIVE INDICATIONS: The patient is a 69-year-old male who was referred for a high-grade left internal carotid stenosis. The patient underwent percutaneous coronary intervention for perioperative risk stratification prior to surgery. He subsequently was consented for carotid endarterectomy and understood all risks, benefits and alternatives of the procedure prior to proceeding. DESCRIPTION OF PROCEDURE: The patient was brought to the operating suite after receiving a left-sided cervical block and invasive monitoring lines per anesthesia. The left neck was prepped and draped in sterile fashion. Next, a timeout procedure was performed. It was confirmed that the patient did receive appropriate perioperative antibiotics and the correct operative site was marked and draped. Following this, a left-sided sternocleidomastoid incision was made, carried through skin and subcutaneous tissue and our dissection was carried down through the platysma muscle until the sternocleidomastoid muscle was identified. Sternocleidomastoid muscle was reflected laterally exposing the jugular vein. Jugular vein was dissected on its anterior, medial surface up to the level of the facial vein where the facial vein was ligated and divided with silk ligatures. Next, the common carotid artery was carefully dissected circumferentially and controlled with a vessel loop. I also carefully identified the vagus nerve and this was preserved throughout its entire course. We continued our dissection cephalad up to the carotid bifurcation. At this point, the patient was heparinized per weight-based protocol. Next, careful dissection of the carotid bifurcation was performed with a no-touch technique. External carotid and superior thyroid artery were controlled with a vessel loop. Following this, the mid to distal internal carotid artery was dissected circumferentially in preparation for clamping. The patient had a bulky calcified plaque noted within the proximal internal carotid artery. After appropriate circulation time of the heparin and after confirming the patient's hemodynamic status to be stable, the internal carotid artery was clamped followed by the common carotid artery followed by the external carotid artery. Fairly immediately after clamping, the patient lost neurologic function and was not following commands. Clamps were subsequently removed and he regained all function at that time. At this point in time, a Sundt shunt was brought to the field and after driving his pressure slightly higher per anesthesia, I reclamped the vessels and then an 11 blade scalpel was used to create an arteriotomy. This was extended using Tello scissors up to a healthy endpoint in the internal carotid artery and common carotid artery. Next, shunt was inserted and this was held in place using Ramesh clamps. The time to shunting was less than 30 seconds and the patient immediately regained function after placement of the shunt. Following this, we were able to expose the plaque further and discovered that this was a very high-grade friable soft plaque within the internal carotid artery. We started with an endarterectomy plane using a [place] elevator and the endarterectomy plane was sharply created in the common carotid artery and then sharply created in the distal internal carotid artery up to an endpoint, which was directly visualized within my field. Next, the endarterectomy was completed within the external carotid artery and the plaque was handed off the field. All loose fragments were ensured to be removed from the lumen of the vessels and we used copious amounts of heparinized saline solution to identify any potential loose fragments. Once I was satisfied with the endarterectomy, then, a bovine pericardial patch was brought to the field and this was sewn in place using 6-0 Prolene suture in a running fashion. We were able to get the arteriotomy closed as much as possible with a shunt in place and at this point, we prepared his blood pressure again by elevating his blood pressure prior to reclamping. Once he was hemodynamically acceptable, then the patient was reclamped and our shunt was removed and then the lumen of the vessel was irrigated with heparinized saline solution. Following this, the arteriotomy was closed and prior to closure, we did backbleed and flushed vessels appropriately. Next, the external carotid artery and common carotid artery clamps were removed to flush any potential debris through the external system. Next, after confirming the patient's hemodynamic status to be stable, the internal carotid artery clamp was released and then removed. The patient regained all function at the conclusion of gnosticism of flow and we had excellent hemostasis through our arteriotomy and our patch. We had excellent flow through the internal carotid artery, external carotid artery and common carotid artery. He was following all commands after gnosticism of flow. Next, a 7-Ivorian drain was placed in the base of the neck and then we ensured he had adequate hemostasis. We also administered protamine to reverse the patient's heparin. Fibrillar was used for raw surface bleeding. After I was satisfied with the hemostasis and our lap, sponge, needle and instrument count was found to be correct, then the platysma layer was closed using 3-0 Vicryl suture followed by 4-0 Monocryl for the skin followed by Dermabond. A sterile drain dressing was placed over the drain exit site. We also did secure the drain using a 3-0 nylon suture. The patient tolerated the procedure well and was following all commands and was transferred to the postanesthesia care unit in stable condition. GRAHAM/ENZO DR: Glory TID: [id number]
[2020-09-11] MEDS: HYDROcodone/APAP 5/325MG 1 TAB TABLET PO PRN ×2 (15:49→20:46)
[2020-09-11 17:44] LABS: BILIRUBIN,URINE NEGATIVE (NEG); CLARITY,URINE CLEAR; COLOR,URINE YELLOW; NITRITE,URINE NEGATIVE (NEG); PROTEIN,URINE NEGATIVE (NEG-TRACE)
[2020-09-11 17:49] LABS: BACTERIA,URINE 0 /HPF (0-FEW); RBC,URINE OCC /HPF (0-2); WBC,URINE 0 /HPF (0-4)
[2020-09-12] MEDS: HYDROcodone/APAP 5/325MG 1 TAB TABLET PO PRN ×3 (00:48→09:04)
[2020-09-12 02:02] VITALS: BP 147/65
[2020-09-12 04:36] LABS: BASO % 0 % (0-3); EOS # 0.4 x10^3/uL (0.0-0.7); EOS % 4 % (0-3); HEMATOCRIT 36.3 % (39.0-53.0); HEMOGLOBIN 12.3 g/dL (13.0-17.5); LYMPH # 1.8 x10^3/uL (1.0-4.8); LYMPH % 20 % (24-48); MEAN CORPUSCULAR HEMOGLOBIN 33 pg (25-35); MEAN CORPUSCULAR HGB CONC 34 g/dL (31-37); MEAN CORPUSCULAR VOLUME 98 fL (79-100); MONO # 0.8 x10^3/uL (0.0-1.1); MONO % 9 % (0-9); NEUT % 66 % (31-73); PLATELET COUNT 123 x10^3/uL (140-400); RED BLOOD COUNT 3.71 x10^6/uL (4.30-5.70); RED CELL DISTRIBUTION WIDTH 13.6 % (11.5-14.5); WHITE BLOOD COUNT 9.1 x10^3/uL (4.0-11.0)
[2020-09-12] MEDS: IV NORMAL SALINE 1000ML BAG 1,000 ML IV SCH ×2 (04:51→10:01)
[2020-09-12 04:58] LABS: ALBUMIN 3.4 g/dL (3.4-5.0); ALBUMIN/GLOBULIN RATIO 1.1 (1.0-1.7); CALCIUM 8.3 mg/dL (8.5-10.1); CREATININE 0.8 mg/dL (0.7-1.3); GFR 95.6; POTASSIUM 4.2 mmol/L (3.5-5.1); TOTAL BILIRUBIN 1.8 mg/dL (0.2-1.0); TOTAL PROTEIN 6.4 g/dL (6.4-8.2)
[2020-09-12 07:00] VITALS: BP 156/69
--- NOTE | 2020-09-12 07:45 | PDOC ---
PROGRESS NOTES Date of Service DATE: 09/12/20 TIME: 07:40 Subjective Subjective Pt seen and examined in his hospital room today POD #1 s/p left CEA He states he had some pain and difficulty sleeping last night but denies any DALE / SOB / CP / N/V No new localizing neurologic Sx VSS awake, alert, normal conversation face symmetric tongue midline speech clear and strong with good diction and phonation strong community advocate bilaterally He has not had breakfast today Up and ambulate in the halls today / have breakfast If doing well will discharge later today Objective Objective Vital Signs Date Time Temp Pulse Resp B/P (MAP) Pulse Ox O2 Delivery O2 Flow Rate FiO2 09/12/20 05:14 Room Air 09/12/20 02:02 98.2 57 19 147/65 (92) 97 98.2 09/11/20 17:20 2.0 Intake and Output 09/12/20 07:00 Intake Total 1815 ml Output Total 1070 ml Balance 745 ml Intake Oral 225 ml IV Total 1590 ml Output Urine Total 950 ml Drainage Total 70 ml Estimated Blood Loss 50 ml Comment Review of Relevant I have reviewed the following items sea (where applicable) has been applied. Labs Laboratory Tests Test 09/11/20 06:27 09/11/20 17:00 09/12/20 03:45 White Blood Count 8.0 x10^3/uL (4.0-11.0) 9.1 x10^3/uL (4.0-11.0) Red Blood Count 3.83 x10^6/uL (4.30-5.70) 3.71 x10^6/uL (4.30-5.70) Hemoglobin 12.8 g/dL (13.0-17.5) 12.3 g/dL (13.0-17.5) Hematocrit 37.7 % (39.0-53.0) 36.3 % (39.0-53.0) Mean Corpuscular Volume 98 fL (79-100) 98 fL (79-100) Mean Corpuscular Hemoglobin 33 pg (25-35) 33 pg (25-35) Mean Corpuscular Hemoglobin Concent 34 g/dL (31-37) 34 g/dL (31-37) Red Cell Distribution Width 13.7 % (11.5-14.5) 13.6 % (11.5-14.5) Platelet Count 137 x10^3/uL (140-400) 123 x10^3/uL (140-400) Neutrophils (%) (Auto) 59 % (31-73) 66 % (31-73) Lymphocytes (%) (Auto) 26 % (24-48) 20 % (24-48) Monocytes (%) (Auto) 9 % (0-9) 9 % (0-9) Eosinophils (%) (Auto) 6 % (0-3) 4 % (0-3) Basophils (%) (Auto) 0 % (0-3) 0 % (0-3) Neutrophils # (Auto) 4.7 x10^3/uL (1.8-7.7) 6.0 x10^3/uL (1.8-7.7) Lymphocytes # (Auto) 2.1 x10^3/uL (1.0-4.8) 1.8 x10^3/uL (1.0-4.8) Monocytes # (Auto) 0.7 x10^3/uL (0.0-1.1) 0.8 x10^3/uL (0.0-1.1) Eosinophils # (Auto) 0.5 x10^3/uL (0.0-0.7) 0.4 x10^3/uL (0.0-0.7) Basophils # (Auto) 0.0 x10^3/uL (0.0-0.2) 0.0 x10^3/uL (0.0-0.2) Sodium Level 142 mmol/L (136-145) 140 mmol/L (136-145) Potassium Level 4.1 mmol/L (3.5-5.1) 4.2 mmol/L (3.5-5.1) Chloride Level 108 mmol/L (98-107) 106 mmol/L (98-107) Carbon Dioxide Level 24 mmol/L (21-32) 28 mmol/L (21-32) Anion Gap 10 (6-14) 6 (6-14) Blood Urea Nitrogen 16 mg/dL (8-26) 12 mg/dL (8-26) Creatinine 1.1 mg/dL (0.7-1.3) 0.8 mg/dL (0.7-1.3) Estimated GFR (Cockcroft-Gault) 66.2 95.6 Glucose Level 103 mg/dL (70-99) 97 mg/dL (70-99) Calcium Level 8.8 mg/dL (8.5-10.1) 8.3 mg/dL (8.5-10.1) Urine Collection Type Unknown Urine Color Yellow Urine Clarity Clear Urine pH 7.0 (<5.0-8.0) Urine Specific [place] 1.025 (1.000-1.030) Urine Protein Negative mg/dL (NEG-TRACE) Urine Glucose (UA) Negative mg/dL (NEG) Urine Ketones (Stick) Negative mg/dL (NEG) Urine Blood Negative (NEG) Urine Nitrite Negative (NEG) Urine Bilirubin Negative (NEG) Urine Urobilinogen Dipstick 1.0 mg/dL (0.2 mg/dL) Urine Leukocyte Esterase Negative (NEG) Urine RBC Occ /HPF (0-2) Urine WBC 0 /HPF (0-4) Urine Bacteria 0 /HPF (0-FEW) BUN/Creatinine Ratio 15 (6-20) Total Bilirubin 1.8 mg/dL (0.2-1.0) Aspartate Amino Transf (AST/SGOT) 15 U/L (15-37) Alanine Aminotransferase (ALT/SGPT) 24 U/L (16-63) Alkaline Phosphatase 92 U/L (46-116) Total Protein 6.4 g/dL (6.4-8.2) Albumin 3.4 g/dL (3.4-5.0) Albumin/Globulin Ratio 1.1 (1.0-1.7) Laboratory Tests Test 09/11/20 17:00 09/12/20 03:45 Urine Collection Type Unknown Urine Color Yellow Urine Clarity Clear Urine pH 7.0 (<5.0-8.0) Urine Specific [place] 1.025 (1.000-1.030) Urine Protein Negative mg/dL (NEG-TRACE) Urine Glucose (UA) Negative mg/dL (NEG) Urine Ketones (Stick) Negative mg/dL (NEG) Urine Blood Negative (NEG) Urine Nitrite Negative (NEG) Urine Bilirubin Negative (NEG) Urine Urobilinogen Dipstick 1.0 mg/dL (0.2 mg/dL) Urine Leukocyte Esterase Negative (NEG) Urine RBC Occ /HPF (0-2) Urine WBC 0 /HPF (0-4) Urine Bacteria 0 /HPF (0-FEW) White Blood Count 9.1 x10^3/uL (4.0-11.0) Red Blood Count 3.71 x10^6/uL (4.30-5.70) Hemoglobin 12.3 g/dL (13.0-17.5) Hematocrit 36.3 % (39.0-53.0) Mean Corpuscular Volume 98 fL (79-100) Mean Corpuscular Hemoglobin 33 pg (25-35) Mean Corpuscular Hemoglobin Concent 34 g/dL (31-37) Red Cell Distribution Width 13.6 % (11.5-14.5) Platelet Count 123 x10^3/uL (140-400) Neutrophils (%) (Auto) 66 % (31-73) Lymphocytes (%) (Auto) 20 % (24-48) Monocytes (%) (Auto) 9 % (0-9) Eosinophils (%) (Auto) 4 % (0-3) Basophils (%) (Auto) 0 % (0-3) Neutrophils # (Auto) 6.0 x10^3/uL (1.8-7.7) Lymphocytes # (Auto) 1.8 x10^3/uL (1.0-4.8) Monocytes # (Auto) 0.8 x10^3/uL (0.0-1.1) Eosinophils # (Auto) 0.4 x10^3/uL (0.0-0.7) Basophils # (Auto) 0.0 x10^3/uL (0.0-0.2) Sodium Level 140 mmol/L (136-145) Potassium Level 4.2 mmol/L (3.5-5.1) Chloride Level 106 mmol/L (98-107) Carbon Dioxide Level 28 mmol/L (21-32) Anion Gap 6 (6-14) Blood Urea Nitrogen 12 mg/dL (8-26) Creatinine 0.8 mg/dL (0.7-1.3) Estimated GFR (Cockcroft-Gault) 95.6 BUN/Creatinine Ratio 15 (6-20) Glucose Level 97 mg/dL (70-99) Calcium Level 8.3 mg/dL (8.5-10.1) Total Bilirubin 1.8 mg/dL (0.2-1.0) Aspartate Amino Transf (AST/SGOT) 15 U/L (15-37) Alanine Aminotransferase (ALT/SGPT) 24 U/L (16-63) Alkaline Phosphatase 92 U/L (46-116) Total Protein 6.4 g/dL (6.4-8.2) Albumin 3.4 g/dL (3.4-5.0) Albumin/Globulin Ratio 1.1 (1.0-1.7) Medications Current Medications Cefazolin Sodium 1 gm/Sodium Chloride 500 ml @ 500 mls/hr 1X ONCE IRR ; Start 09/11/20 at 06:00; Stop 09/11/20 at 06:59; Status DC Heparin Sodium (Porcine) 5000 unit/Ringer's Solution 505 ml @ 505 mls/hr 1X ONCE IRR ; Start 09/11/20 at 06:00; Stop 09/11/20 at 06:59; Status DC Fentanyl Citrate (Fentanyl 2ml Vial) 25 mcg PRN Q5MIN PRN IVP MILD PAIN 1-3; Start 09/11/20 at 06:00; Stop 09/11/20 at 19:00; Status DC Fentanyl Citrate (Fentanyl 2ml Vial) 50 mcg PRN Q5MIN PRN IVP MODERATE PAIN 4- 6; Start 09/11/20 at 06:00; Stop 09/11/20 at 19:00; Status DC Morphine Sulfate (Morphine Sulfate) 1 mg PRN Q10MIN PRN IVP SEVERE PAIN 7-10; Start 09/11/20 at 06:00; Stop 09/11/20 at 19:00; Status DC Ringer's Solution 1,000 ml @ 30 mls/hr Q24H IV Last administered on 09/11/20at 06:32; Start 09/11/20 at 06:00; Stop 09/11/20 at 17:59; Status DC Hydromorphone HCl (Dilaudid) 0.5 mg PRN Q10MIN PRN IVP SEVERE PAIN 7-10, 2nd CHOICE; Start 09/11/20 at 06:00; Stop 09/11/20 at 19:00; Status DC Prochlorperazine Edisylate (Compazine) 5 mg PACU PRN PRN IVP NAUSEA, MRX1; Start 09/11/20 at 06:00; Stop 09/11/20 at 19:00; Status DC Cefazolin Sodium/ Dextrose 50 ml @ 100 mls/hr 1X PREOP PRN IV PRIOR TO PROCEDURE; Start 09/11/20 at 06:00; Stop 09/11/20 at 10:29; Status DC Ropivacaine (Naropin 0.5%) 20 ml STK-MED ONCE .ROUTE ; Start 09/11/20 at 04:54; Stop 09/11/20 at 06:54; Status DC Lidocaine HCl (Lidocaine 1% 20ml Vial) 20 ml STK-MED ONCE .ROUTE Last administered on 09/11/20at 08:13; Start 09/11/20 at 07:00; Stop 09/11/20 at 07:01; Status DC Cellulose (Surgicel Fibrillar 1x2) 1 each STK-MED ONCE .ROUTE Last administered on 09/11/20at 08:14; Start 09/11/20 at 07:00; Stop 09/11/20 at 07:01; Status DC Dexmedetomidine HCl 400 mcg/ Sodium Chloride 100 ml @ 0 mls/hr CONT PRN IV PER PROTOCOL; Start 09/11/20 at 07:30 Sodium Chloride 1,000 ml @ 75 mls/hr [id number] IV ; Start 09/11/20 at 07:30 Labetalol HCl (Normodyne Iv Push) 10 mg PRN Q1HR PRN IVP HYPERTENSION; Start 09/11/20 at 07:30 Acetaminophen/ Hydrocodone Bitart (Lortab 5/325) 1 tab PRN Q4HRS PRN PO PAIN Last administered on 09/12/20at 04:44; Start 09/11/20 at 07:30 Morphine Sulfate (Morphine Sulfate) 2 mg PRN Q2HR PRN IV PAIN; Start 09/11/20 at 07:30 Hydralazine HCl (Apresoline Inj) 10 mg PRN Q2HRS PRN IVP ELEVATED BP, SEE COMMENTS; Start 09/11/20 at 07:30 Cefazolin Sodium/ Dextrose 50 ml @ 100 mls/hr Q8HRS IV Last administered on 09/11/20at 20:43; Start 09/11/20 at 14:00; Stop 09/11/20 at 22:29; Status DC Nicardipine HCl (Cardene) 25 mg STK-MED ONCE IV ; Start 09/11/20 at 08:03; Stop 09/11/20 at 08:03; Status DC Lidocaine HCl (Xylocaine 1% Pf 30ml Vial) 30 ml STK-MED ONCE .ROUTE Last administered on 09/11/20at 08:14; Start 09/11/20 at 08:06; Stop 09/11/20 at 08:07; Status DC Heparin Sodium (Porcine) (Heparin Sodium) 10,000 unit STK-MED ONCE .ROUTE ; Start 09/11/20 at 08:31; Stop 09/11/20 at 08:31; Status DC Phenylephrine HCl (PHENYLEPHRINE in 0.9% NACL PF) 1 mg STK-MED ONCE IV ; Start 09/11/20 at 08:50; Stop 09/11/20 at 08:50; Status DC Protamine Sulfate (Protamine) 50 mg STK-MED ONCE IV ; Start 09/11/20 at 09:24; Stop 09/11/20 at 09:25; Status DC Allopurinol (Zyloprim) 100 mg DAILY PO ; Start 09/12/20 at 09:00 Aspirin (Aspirin Chewable) 81 mg DAILY PO ; Start 09/12/20 at 09:00 Atorvastatin Calcium (Lipitor) 40 mg DAILY PO ; Start 09/12/20 at 09:00 Clopidogrel Bisulfate (Plavix) 75 mg DAILYWBKFT PO ; Start 09/12/20 at 08:00 Lisinopril (Prinivil) 5 mg DAILY PO ; Start 09/12/20 at 09:00 Metoprolol Succinate (Toprol Xl) 50 mg DAILY PO ; Start 09/12/20 at 09:00; Stop 09/11/20 at 13:56; Status DC Spironolactone (Aldactone) 25 mg DAILY PO ; Start 09/12/20 at 09:00 Tamsulosin HCl (Flomax) 0.4 mg DAILY PO ; Start 09/12/20 at 09:00 Sodium Chloride (Normal Saline Flush) 3 ml QSHIFT PRN IV AFTER MEDS AND BLOOD DRAWS; Start 09/11/20 at 11:15 Sodium Chloride 1,000 ml @ 70 mls/hr [id number] IV Last administered on 09/12/20at 04:51; Start 09/11/20 at 11:15 Ondansetron HCl (Zofran) 4 mg PRN Q4HRS PRN IV NAUSEA/VOMITING; Start 09/11/20 at 11:15 Acetaminophen (Tylenol) 650 mg PRN Q4HRS PRN PO TEMP OVER 100.4F OR MILD PAIN; Start 09/11/20 at 11:15 Acetaminophen (Tylenol Supp) 650 mg PRN Q4HRS PRN [place] TEMP OVER 100.4F OR MILD PAIN; Start 09/11/20 at 11:15 Al Hydroxide/Mg Hydroxide (Mylanta Plus Xs) 30 ml PRN DAILY PRN PO HEARTBURN / GAS; Start 09/11/20 at 11:15 Docusate Sodium (Colace) 100 mg PRN BID PRN PO HARD STOOLS; Start 09/11/20 at 11:15 Albuterol Sulfate (Ventolin Neb Soln) 2.5 mg PRN Q4HRS PRN NEB SHORTNESS OF BREATH; Start 09/11/20 at 11:15 Guaifenesin (Robitussin) 200 mg PRN Q4HRS PRN PO COUGH; Start 09/11/20 at 11:15 Active Scripts Active Clopidogrel (Clopidogrel Bisulfate) 75 Mg Tablet 75 Mg PO DAILYWBKFT 30 Days Lisinopril 5 Mg Tablet 1 Tab PO DAILY 30 Days Reported Aspirin 81 Mg Tab.chew 81 Mg PO DAILY Spironolactone 25 Mg Tablet 1 Tab PO DAILY Atorvastatin Calcium 40 Mg Tablet 1 Tab PO DAILY Toprol XL (Metoprolol Succinate) 50 Mg Tab.er.24h 50 Mg PO DAILY Allopurinol 100 Mg Tablet 1 Tab PO DAILY Once Daily (Multivitamin) 1 Each Tablet 1 Tab PO DAILY 30 Days Tamsulosin Hcl 0.4 Mg Cap.er.24h 1 Cap PO DAILY Vitals/I & O Vital Sign - Last 24 Hours 09/11/20 09/11/20 09/11/20 09/11/20 09:56 09:56 10:15 10:30 Temp 97.7 97.0 97.7 97.7 97.0 97.7 Pulse 53 50 50 Resp 15 15 17 B/P (MAP) 125/71 126/52 124/64 118/65 129/54 Pulse Ox 95 98 96 O2 Delivery Nasal Cannula Nasal Cannula Nasal Cannula Nasal Cannula O2 Flow Rate 4 4 4 4 09/11/20 09/11/20 09/11/20 09/11/20 10:45 11:00 11:00 11:06 Temp 97.7 97.7 97.7 97.7 Pulse 48 48 49 Resp 15 16 B/P (MAP) 129/68 133/67 124/66 (85) Pulse Ox 97 98 O2 Delivery Nasal Cannula Nasal Cannula Nasal Cannula O2 Flow Rate 4 4 4 09/11/20 09/11/20 09/11/20 09/11/20 11:17 11:21 11:36 11:51 Pulse 47 48 48 B/P (MAP) 133/65 (87) 131/68 (89) 132/67 (88) O2 Delivery Nasal Cannula O2 Flow Rate 2.0 09/11/20 09/11/20 09/11/20 09/11/20 12:21 12:51 13:21 13:51 Pulse 46 44 49 46 B/P (MAP) 141/67 (91) 120/58 (78) 131/60 (83) 120/65 (83) 09/11/20 09/11/20 09/11/20 09/11/20 14:51 15:00 15:49 15:51 Temp 97.4 97.4 Pulse 47 45 51 Resp 18 B/P (MAP) 139/73 (95) 139/73 (95) 148/65 (92) Pulse Ox 97 97 O2 Delivery Room Air Nasal Cannula O2 Flow Rate 2.0 09/11/20 09/11/20 09/11/20 09/11/20 16:51 17:20 17:51 18:56 Temp 97.4 97.4 Pulse 49 54 55 Resp 18 B/P (MAP) 147/71 (96) 139/67 (91) 133/64 (87) Pulse Ox 97 96 O2 Delivery Nasal Cannula Room Air O2 Flow Rate 2.0 09/11/20 09/11/20 09/11/20 09/12/20 20:46 21:16 22:32 00:48 Temp 98.3 98.3 Pulse 62 Resp 18 B/P (MAP) 153/68 (96) Pulse Ox 97 O2 Delivery Room Air Room Air Room Air Room Air 09/12/20 09/12/20 09/12/20 02:02 04:44 05:14 Temp 98.2 98.2 Pulse 57 Resp 19 B/P (MAP) 147/65 (92) Pulse Ox 97 O2 Delivery Room Air Room Air Room Air Intake and Output 09/11/20 09/11/20 09/12/20 15:00 23:00 07:00 Intake Total 700 ml 125 ml 990 ml Output Total 75 ml 245 ml 750 ml Balance 625 ml -120 ml 240 ml Justifications for Admission General Conditions Other justification for admit: CAROTID ENDARTERECTOMY Other Justification ONESIMO FORBES MD Sep 12, 2020 07:45
[2020-09-12] MEDS ORDERED: CLOPIDOGREL BISULFATE 75 MG TABLET PO SCH (08:00)
--- NOTE | 2020-09-12 08:23 | PDOC ---
PROGRESS NOTES Date of Service: DATE: 09/12/20 TIME: 08:22 Chief Complaint Chief Complaint POD #1 s/p left CEA VTE Prophylaxis Ordered VTE Prophylaxis Devices: Yes VTE Pharmacological Prophylaxi: No Assessment/Plan Assessment/Plan impression ======== POD #1 s/p left CEA High-grade asymptomatic left internal carotid stenosis. with left carotid endarterectomy this morning. 09-11 recent sequential [place] to LAD/diagonal, patent SVG to OM/LCx with patent previously placed stent, known occlusion of SVG to PDA/PLV with significant 90 to 95% stenosis involving the distal segment of RCA. He underwent successful PCI/drug-eluting stent placement to RCA. 08-09-20 HX HYPERLIPIDEMIA ON statin, asa CAD; past CABG HTN: controlled plan ADMIT CVC BED consult vascular consult cardiology re recent PCI home meds scd's dvt prophylaxis [place] q 4 hrs HOME MEDS no lovenox, defer to vascular surgery History of Present Illness History of Present Illness Identification/Chief Complaint Chief Complaint post-op left CEA today, HC RECENT PCI/ CAD History of Present Illness History of Present Illness Mr. Kilgore is a 69 old male who was recently diagnosed with carotid artery stenosis and currently admitted for carotid endarterectomy by vascular surgery team He underwent stress test secondary to his history of coronary artery disease/CABG. in July this showed significant amount of inferior wall ischemia, he presented for cardiac catheterization that showed patent sequential [place] to LAD/diagonal, patent SVG to OM/LCx with patent previously placed stent, known occlusion of SVG to PDA/PLV with significant 90 to 95% stenosis involving the distal segment of RCA. He underwent successful PCI/drug-eluting stent placement to RCA. 08-09-20 Seen in PACU for Dr Erickson request today underwent appropriate perioperative risk stratification with cardiology and was found to be an acceptable candidate to proceed with surgery. Seen in PACU , mildly sedated Past Medical History Cardiovascular: CAD, HTN, Hyperlipidemia Pulmonary: Asthma CENTRAL NERVOUS SYSTEM: Other GI: No pertinent hx, Peptic Ulcer disease Heme/Onc: No pertinent hx Hepatobiliary: No pertinent hx Psych: No pertinent hx Musculoskeletal: low back pain, Osteoarthritis Rheumatologic: No pertinent hx Infectious disease: No pertinent hx ENT: No pertinent hx Renal/: No pertinent hx, Benign prostatic enlarg. Endocrine: No pertinent hx Past Surgical History Past Surgical History: CABG, Other Family History Family History: Coronary Artery Disease, High Cholestrol, Hypertension Social History ALCOHOL: none Drugs: None Current Medications Current Medications Current Medications Cefazolin Sodium 1 gm/Sodium Chloride 500 ml @ 500 mls/hr 1X ONCE IRR ; Start 09/11/20 at 06:00; Stop 09/11/20 at 06:59; Status DC Heparin Sodium (Porcine) 5000 unit/Ringer's Solution 505 ml @ 505 mls/hr 1X ONCE IRR ; Start 09/11/20 at 06:00; Stop 09/11/20 at 06:59; Status DC Fentanyl Citrate (Fentanyl 2ml Vial) 25 mcg PRN Q5MIN PRN IVP MILD PAIN 1-3; Start 09/11/20 at 06:00; Stop 09/11/20 at 19:00 Fentanyl Citrate (Fentanyl 2ml Vial) 50 mcg PRN Q5MIN PRN IVP MODERATE PAIN 4- 6; Start 09/11/20 at 06:00; Stop 09/11/20 at 19:00 Morphine Sulfate (Morphine Sulfate) 1 mg PRN Q10MIN PRN IVP SEVERE PAIN 7-10; Start 09/11/20 at 06:00; Stop 09/11/20 at 19:00 Ringer's Solution 1,000 ml @ 30 mls/hr Q24H IV Last administered on 09/11/20at 06:32; Start 09/11/20 at 06:00; Stop 09/11/20 at 17:59 Hydromorphone HCl (Dilaudid) 0.5 mg PRN Q10MIN PRN IVP SEVERE PAIN 7-10, 2nd CHOICE; Start 09/11/20 at 06:00; Stop 09/11/20 at 19:00 Prochlorperazine Edisylate (Compazine) 5 mg PACU PRN PRN IVP NAUSEA, MRX1; Start 09/11/20 at 06:00; Stop 09/11/20 at 19:00 Cefazolin Sodium/ Dextrose 50 ml @ 100 mls/hr 1X PREOP PRN IV PRIOR TO PROCEDURE; Start 09/11/20 at 06:00; Stop 09/11/20 at 10:29; Status DC Ropivacaine (Naropin 0.5%) 20 ml STK-MED ONCE .ROUTE ; Start 09/11/20 at 04:54; Stop 09/11/20 at 06:54; Status DC Lidocaine HCl (Lidocaine 1% 20ml Vial) 20 ml STK-MED ONCE .ROUTE Last administered on 09/11/20at 08:13; Start 09/11/20 at 07:00; Stop 09/11/20 at 0 7:01; Status DC Cellulose (Surgicel Fibrillar 1x2) 1 each STK-MED ONCE .ROUTE Last administered on 09/11/20at 08:14; Start 09/11/20 at 07:00; Stop 09/11/20 at 07:01; Status DC Dexmedetomidine HCl 400 mcg/ Sodium Chloride 100 ml @ 0 mls/hr CONT PRN IV PER PROTOCOL; Start 09/11/20 at 07:30 Sodium Chloride 1,000 ml @ 75 mls/hr [id number] IV ; Start 09/11/20 at 07:30 Labetalol HCl (Normodyne Iv Push) 10 mg PRN Q1HR PRN IVP HYPERTENSION; Start 09/11/20 at 07:30 Acetaminophen/ Hydrocodone Bitart (Lortab 5/325) 1 tab PRN Q4HRS PRN PO PAIN; Start 09/11/20 at 07:30 Morphine Sulfate (Morphine Sulfate) 2 mg PRN Q2HR PRN IV PAIN; Start 09/11/20 at 07:30 Hydralazine HCl (Apresoline Inj) 10 mg PRN Q2HRS PRN IVP ELEVATED BP, SEE COMMENTS; Start 09/11/20 at 07:30 Cefazolin Sodium/ Dextrose 50 ml @ 100 mls/hr Q8HRS IV ; Start 09/11/20 at 14:00; Stop 09/11/20 at 22:29 Nicardipine HCl (Cardene) 25 mg STK-MED ONCE IV ; Start 09/11/20 at 08:03; Stop 09/11/20 at 08:03; Status DC Lidocaine HCl (Xylocaine 1% Pf 30ml Vial) 30 ml STK-MED ONCE .ROUTE Last administered on 09/11/20at 08:14; Start 09/11/20 at 08:06; Stop 09/11/20 at 08:07; Status DC Heparin Sodium (Porcine) (Heparin Sodium) 10,000 unit STK-MED ONCE .ROUTE ; Start 09/11/20 at 08:31; Stop 09/11/20 at 08:31; Status DC Phenylephrine HCl (PHENYLEPHRINE in 0.9% NACL PF) 1 mg STK-MED ONCE IV ; Start 09/11/20 at 08:50; Stop 09/11/20 at 08:50; Status DC Protamine Sulfate (Protamine) 50 mg STK-MED ONCE IV ; Start 09/11/20 at 09:24; Stop 09/11/20 at 09:25; Status DC Allopurinol (Zyloprim) 100 mg DAILY PO ; Start 09/12/20 at 09:00 Aspirin (Aspirin Chewable) 81 mg DAILY PO ; Start 09/12/20 at 09:00 Atorvastatin Calcium (Lipitor) 40 mg DAILY PO ; Start 09/12/20 at 09:00 Clopidogrel Bisulfate (Plavix) 75 mg DAILYWBKFT PO ; Start 09/12/20 at 08:00 Lisinopril (Prinivil) 5 mg DAILY PO ; Start 09/12/20 at 09:00 Metoprolol Succinate (Toprol Xl) 50 mg DAILY PO ; Start 09/12/20 at 09:00 Spironolactone (Aldactone) 25 mg DAILY PO ; Start 09/12/20 at 09:00 Tamsulosin HCl (Flomax) 0.4 mg DAILY PO ; Start 09/12/20 at 09:00 Active Scripts Active Clopidogrel (Clopidogrel Bisulfate) 75 Mg Tablet 75 Mg PO DAILYWBKFT 30 Days Lisinopril 5 Mg Tablet 1 Tab PO DAILY 30 Days Reported Aspirin 81 Mg Tab.chew 81 Mg PO DAILY Spironolactone 25 Mg Tablet 1 Tab PO DAILY Atorvastatin Calcium 40 Mg Tablet 1 Tab PO DAILY Toprol XL (Metoprolol Succinate) 50 Mg Tab.er.24h 50 Mg PO DAILY Allopurinol 100 Mg Tablet 1 Tab PO DAILY Once Daily (Multivitamin) 1 Each Tablet 1 Tab PO DAILY 30 Days Tamsulosin Hcl 0.4 Mg Cap.er.24h 1 Cap PO DAILY Allergies Allergies: Coded Allergies: No Known Drug Allergies (Unverified , 10/03/15) ROS Review of System 14 pt ros otherwise neg General: No: Chills, Night Sweats, Fatigue, Malaise, Appetite, Other PSYCHOLOGICAL ROS: No: Anxiety, Behavioral Disorder, Concentration difficultie, Decreased libido, Depression, Disorientation, Hallucinations, Hostility, Irritablity, Memory difficulties, Mood Swings, Obsessive thoughts, Physical abuse, Sexual abuse, Sleep disturbances, Suicidal ideation, Other Eyes: No Blurry vision, No Decreased vision, No Double vision, No Dry eyes, No Excessive tearing, No Eye Pain, No Itchy Eyes, No Loss of vision, No Photophobia, No Scotomata, No Uses contacts, No Uses glasses, No Other HEENT: No: Heacaches, Visual Changes, Hearing change, Nasal congestion, Nasal discharge, Oral lesions, Sinus pain, Sore Throat, Epistaxis, Sneezing, Snoring, Tinnitus, Vertigo, Vocal changes, Other ALLERGY AND IMMUNOLOGY: No: Hives, Insect Bite Sensitivity, Itchy/Watery Eyes, Nasal Congestion, Post Nasal Drip, Seasonal Allergies, Other Hematological and Lymphatic: No: Bleeding Problems, Blood Clots, Blood T ransfusions, Brusing, Night Sweats, Pallor, Swollen Lymph Nodes, Other ENDOCRINE: No: Breast Changes, Galactorrhea, Hair Pattern Changes, Hot Flashes, Malaise/lethargy, Mood Swings, Palpitations, Polydipsia/polyuria, Skin Changes, Temperature Intolerance, Unexpected Weight Changes, Other Breast: No New/Changing Breast Lumps, No Nipple changes, No Nipple discharge, No Other Respiratory: No: Cough, Hemoptysis, Orthopnea, Pleuritic Pain, Shortness of breath, SOB with excertion, Sputum Changes, Stridor, Tachypnea, Wheezing, Other Cardiovascular: No Chest Pain, No Palpitations, No Orthopnea, No Paroxysmal Noc. Dyspnea, No Edema, No Lt Headedness, No Other Gastrointestinal: No Nausea, No Vomiting, No Abdominal Pain, No Diarrhea, No Constipation, No Melena, No Hematochezia, No Other Genitourinary: No Dysuria, No Frequency, No Incontinence, No Hematuria, No Retention, No Discharge, No Urgency, No Pain, No Flank Pain, No Other, No , No , No , No , No , No , No Musculoskeletal: No Gait Disturbance, No Joint Pain, No Joint Stiffness, No Joint Swelling, No Muscle Pain, No Muscular Weakness, No Pain In:, No Swelling In:, No Other Neurological: No Behavorial Changes, No Bowel/Bladder ControlChng, No Confusion, No Dizziness, No Gait Disturbance, No Headaches, No Impaired Coord/balance, No Memory Loss, No Numbness/Tingling, No Seizures, No Speech Problems, No Tremors, No Visual Changes, No Weakness, No Other Skin: No Dry Skin, No Eczema, No Hair Changes, No Lumps, No Mole Changes, No Mottling, No Nail Changes, No Pruritus, No Rash, No Skin Lesion Changes, No Other, No Acne POD #1 s/p left CEA High-grade asymptomatic left internal carotid stenosis. with left carotid endarterectomy 09-12 DOING WELL , ambulate, home later today if ok with vascular surgery Vitals Vitals Vital Signs Date Time Temp Pulse Resp B/P (MAP) Pulse Ox O2 Delivery O2 Flow Rate FiO2 09/12/20 07:49 Room Air 09/12/20 07:00 97.5 61 14 156/69 (98) 96 97.5 09/11/20 17:20 2.0 Physical Exam Physical Exam left carotid site dry dressing General: Alert, Oriented X3, Cooperative, No acute distress HEENT: PERRLA, EOMI, Mucous membr. moist/pink Lungs: Clear to auscultation, Normal air movement Heart: S1S2, RRR, no thrills, no rubs, no gallops, no murmurs Cardiovascular: S1, S2 Breasts: Not examined Abdomen: Normal bowel sounds, Soft, No tenderness, No hepatosplenomegaly Rectal Exam: not examined Extremities: No cyanosis Neuro: Normal speech, Sensation intact, Cranial nerves 3-12 NL Psych/Mental Status: Mental status NL, Mood NL General: Alert, Oriented X3, Cooperative, No acute distress Heart: Regular rate, Normal S1, Normal S2, No murmurs Lungs: Clear Abdomen: Normal bowel sounds, Soft, No tenderness, No hepatosplenomegaly Extremities: No cyanosis Labs LABS Laboratory Tests Test 09/11/20 17:00 09/12/20 03:45 Urine Collection Type Unknown Urine Color Yellow Urine Clarity Clear Urine pH 7.0 (<5.0-8.0) Urine Specific [place] 1.025 (1.000-1.030) Urine Protein Negative mg/dL (NEG-TRACE) Urine Glucose (UA) Negative mg/dL (NEG) Urine Ketones (Stick) Negative mg/dL (NEG) Urine Blood Negative (NEG) Urine Nitrite Negative (NEG) Urine Bilirubin Negative (NEG) Urine Urobilinogen Dipstick 1.0 mg/dL (0.2 mg/dL) Urine Leukocyte Esterase Negative (NEG) Urine RBC Occ /HPF (0-2) Urine WBC 0 /HPF (0-4) Urine Bacteria 0 /HPF (0-FEW) White Blood Count 9.1 x10^3/uL (4.0-11.0) Red Blood Count 3.71 x10^6/uL (4.30-5.70) Hemoglobin 12.3 g/dL (13.0-17.5) Hematocrit 36.3 % (39.0-53.0) Mean Corpuscular Volume 98 fL (79-100) Mean Corpuscular Hemoglobin 33 pg (25-35) Mean Corpuscular Hemoglobin Concent 34 g/dL (31-37) Red Cell Distribution Width 13.6 % (11.5-14.5) Platelet Count 123 x10^3/uL (140-400) Neutrophils (%) (Auto) 66 % (31-73) Lymphocytes (%) (Auto) 20 % (24-48) Monocytes (%) (Auto) 9 % (0-9) Eosinophils (%) (Auto) 4 % (0-3) Basophils (%) (Auto) 0 % (0-3) Neutrophils # (Auto) 6.0 x10^3/uL (1.8-7.7) Lymphocytes # (Auto) 1.8 x10^3/uL (1.0-4.8) Monocytes # (Auto) 0.8 x10^3/uL (0.0-1.1) Eosinophils # (Auto) 0.4 x10^3/uL (0.0-0.7) Basophils # (Auto) 0.0 x10^3/uL (0.0-0.2) Sodium Level 140 mmol/L (136-145) Potassium Level 4.2 mmol/L (3.5-5.1) Chloride Level 106 mmol/L (98-107) Carbon Dioxide Level 28 mmol/L (21-32) Anion Gap 6 (6-14) Blood Urea Nitrogen 12 mg/dL (8-26) Creatinine 0.8 mg/dL (0.7-1.3) Estimated GFR (Cockcroft-Gault) 95.6 BUN/Creatinine Ratio 15 (6-20) Glucose Level 97 mg/dL (70-99) Calcium Level 8.3 mg/dL (8.5-10.1) Total Bilirubin 1.8 mg/dL (0.2-1.0) Aspartate Amino Transf (AST/SGOT) 15 U/L (15-37) Alanine Aminotransferase (ALT/SGPT) 24 U/L (16-63) Alkaline Phosphatase 92 U/L (46-116) Total Protein 6.4 g/dL (6.4-8.2) Albumin 3.4 g/dL (3.4-5.0) Albumin/Globulin Ratio 1.1 (1.0-1.7) Comment Review of Relevant I have reviewed the following items sea (where applicable) has been applied. Labs Laboratory Tests Test 09/11/20 06:27 09/11/20 17:00 09/12/20 03:45 White Blood Count 8.0 x10^3/uL (4.0-11.0) 9.1 x10^3/uL (4.0-11.0) Red Blood Count 3.83 x10^6/uL (4.30-5.70) 3.71 x10^6/uL (4.30-5.70) Hemoglobin 12.8 g/dL (13.0-17.5) 12.3 g/dL (13.0-17.5) Hematocrit 37.7 % (39.0-53.0) 36.3 % (39.0-53.0) Mean Corpuscular Volume 98 fL (79-100) 98 fL (79-100) Mean Corpuscular Hemoglobin 33 pg (25-35) 33 pg (25-35) Mean Corpuscular Hemoglobin Concent 34 g/dL (31-37) 34 g/dL (31-37) Red Cell Distribution Width 13.7 % (11.5-14.5) 13.6 % (11.5-14.5) Platelet Count 137 x10^3/uL (140-400) 123 x10^3/uL (140-400) Neutrophils (%) (Auto) 59 % (31-73) 66 % (31-73) Lymphocytes (%) (Auto) 26 % (24-48) 20 % (24-48) Monocytes (%) (Auto) 9 % (0-9) 9 % (0-9) Eosinophils (%) (Auto) 6 % (0-3) 4 % (0-3) Basophils (%) (Auto) 0 % (0-3) 0 % (0-3) Neutrophils # (Auto) 4.7 x10^3/uL (1.8-7.7) 6.0 x10^3/uL (1.8-7.7) Lymphocytes # (Auto) 2.1 x10^3/uL (1.0-4.8) 1.8 x10^3/uL (1.0-4.8) Monocytes # (Auto) 0.7 x10^3/uL (0.0-1.1) 0.8 x10^3/uL (0.0-1.1) Eosinophils # (Auto) 0.5 x10^3/uL (0.0-0.7) 0.4 x10^3/uL (0.0-0.7) Basophils # (Auto) 0.0 x10^3/uL (0.0-0.2) 0.0 x10^3/uL (0.0-0.2) Sodium Level 142 mmol/L (136-145) 140 mmol/L (136-145) Potassium Level 4.1 mmol/L (3.5-5.1) 4.2 mmol/L (3.5-5.1) Chloride Level 108 mmol/L (98-107) 106 mmol/L (98-107) Carbon Dioxide Level 24 mmol/L (21-32) 28 mmol/L (21-32) Anion Gap 10 (6-14) 6 (6-14) Blood Urea Nitrogen 16 mg/dL (8-26) 12 mg/dL (8-26) Creatinine 1.1 mg/dL (0.7-1.3) 0.8 mg/dL (0.7-1.3) Estimated GFR (Cockcroft-Gault) 66.2 95.6 Glucose Level 103 mg/dL (70-99) 97 mg/dL (70-99) Calcium Level 8.8 mg/dL (8.5-10.1) 8.3 mg/dL (8.5-10.1) Urine Collection Type Unknown Urine Color Yellow Urine Clarity Clear Urine pH 7.0 (<5.0-8.0) Urine Specific [place] 1.025 (1.000-1.030) Urine Protein Negative mg/dL (NEG-TRACE) Urine Glucose (UA) Negative mg/dL (NEG) Urine Ketones (Stick) Negative mg/dL (NEG) Urine Blood Negative (NEG) Urine Nitrite Negative (NEG) Urine Bilirubin Negative (NEG) Urine Urobilinogen Dipstick 1.0 mg/dL (0.2 mg/dL) Urine Leukocyte Esterase Negative (NEG) Urine RBC Occ /HPF (0-2) Urine WBC 0 /HPF (0-4) Urine Bacteria 0 /HPF (0-FEW) BUN/Creatinine Ratio 15 (6-20) Total Bilirubin 1.8 mg/dL (0.2-1.0) Aspartate Amino Transf (AST/SGOT) 15 U/L (15-37) Alanine Aminotransferase (ALT/SGPT) 24 U/L (16-63) Alkaline Phosphatase 92 U/L (46-116) Total Protein 6.4 g/dL (6.4-8.2) Albumin 3.4 g/dL (3.4-5.0) Albumin/Globulin Ratio 1.1 (1.0-1.7) Laboratory Tests Test 09/11/20 17:00 09/12/20 03:45 Urine Collection Type Unknown Urine Color Yellow Urine Clarity Clear Urine pH 7.0 (<5.0-8.0) Urine Specific [place] 1.025 (1.000-1.030) Urine Protein Negative mg/dL (NEG-TRACE) Urine Glucose (UA) Negative mg/dL (NEG) Urine Ketones (Stick) Negative mg/dL (NEG) Urine Blood Negative (NEG) Urine Nitrite Negative (NEG) Urine Bilirubin Negative (NEG) Urine Urobilinogen Dipstick 1.0 mg/dL (0.2 mg/dL) Urine Leukocyte Esterase Negative (NEG) Urine RBC Occ /HPF (0-2) Urine WBC 0 /HPF (0-4) Urine Bacteria 0 /HPF (0-FEW) White Blood Count 9.1 x10^3/uL (4.0-11.0) Red Blood Count 3.71 x10^6/uL (4.30-5.70) Hemoglobin 12.3 g/dL (13.0-17.5) Hematocrit 36.3 % (39.0-53.0) Mean Corpuscular Volume 98 fL (79-100) Mean Corpuscular Hemoglobin 33 pg (25-35) Mean Corpuscular Hemoglobin Concent 34 g/dL (31-37) Red Cell Distribution Width 13.6 % (11.5-14.5) Platelet Count 123 x10^3/uL (140-400) Neutrophils (%) (Auto) 66 % (31-73) Lymphocytes (%) (Auto) 20 % (24-48) Monocytes (%) (Auto) 9 % (0-9) Eosinophils (%) (Auto) 4 % (0-3) Basophils (%) (Auto) 0 % (0-3) Neutrophils # (Auto) 6.0 x10^3/uL (1.8-7.7) Lymphocytes # (Auto) 1.8 x10^3/uL (1.0-4.8) Monocytes # (Auto) 0.8 x10^3/uL (0.0-1.1) Eosinophils # (Auto) 0.4 x10^3/uL (0.0-0.7) Basophils # (Auto) 0.0 x10^3/uL (0.0-0.2) Sodium Level 140 mmol/L (136-145) Potassium Level 4.2 mmol/L (3.5-5.1) Chloride Level 106 mmol/L (98-107) Carbon Dioxide Level 28 mmol/L (21-32) Anion Gap 6 (6-14) Blood Urea Nitrogen 12 mg/dL (8-26) Creatinine 0.8 mg/dL (0.7-1.3) Estimated GFR (Cockcroft-Gault) 95.6 BUN/Creatinine Ratio 15 (6-20) Glucose Level 97 mg/dL (70-99) Calcium Level 8.3 mg/dL (8.5-10.1) Total Bilirubin 1.8 mg/dL (0.2-1.0) Aspartate Amino Transf (AST/SGOT) 15 U/L (15-37) Alanine Aminotransferase (ALT/SGPT) 24 U/L (16-63) Alkaline Phosphatase 92 U/L (46-116) Total Protein 6.4 g/dL (6.4-8.2) Albumin 3.4 g/dL (3.4-5.0) Albumin/Globulin Ratio 1.1 (1.0-1.7) Medications Current Medications Cefazolin Sodium 1 gm/Sodium Chloride 500 ml @ 500 mls/hr 1X ONCE IRR ; Start 09/11/20 at 06:00; Stop 09/11/20 at 06:59; Status DC Heparin Sodium (Porcine) 5000 unit/Ringer's Solution 505 ml @ 505 mls/hr 1X ONCE IRR ; Start 09/11/20 at 06:00; Stop 09/11/20 at 06:59; Status DC Fentanyl Citrate (Fentanyl 2ml Vial) 25 mcg PRN Q5MIN PRN IVP MILD PAIN 1-3; Start 09/11/20 at 06:00; Stop 09/11/20 at 19:00; Status DC Fentanyl Citrate (Fentanyl 2ml Vial) 50 mcg PRN Q5MIN PRN IVP MODERATE PAIN 4- 6; Start 09/11/20 at 06:00; Stop 09/11/20 at 19:00; Status DC Morphine Sulfate (Morphine Sulfate) 1 mg PRN Q10MIN PRN IVP SEVERE PAIN 7-10; Start 09/11/20 at 06:00; Stop 09/11/20 at 19:00; Status DC Ringer's Solution 1,000 ml @ 30 mls/hr Q24H IV Last administered on 09/11/20at 06:32; Start 09/11/20 at 06:00; Stop 09/11/20 at 17:59; Status DC Hydromorphone HCl (Dilaudid) 0.5 mg PRN Q10MIN PRN IVP SEVERE PAIN 7-10, 2nd CHOICE; Start 09/11/20 at 06:00; Stop 09/11/20 at 19:00; Status DC Prochlorperazine Edisylate (Compazine) 5 mg PACU PRN PRN IVP NAUSEA, MRX1; Start 09/11/20 at 06:00; Stop 09/11/20 at 19:00; Status DC Cefazolin Sodium/ Dextrose 50 ml @ 100 mls/hr 1X PREOP PRN IV PRIOR TO PROCEDURE; Start 09/11/20 at 06:00; Stop 09/11/20 at 10:29; Status DC Ropivacaine (Naropin 0.5%) 20 ml STK-MED ONCE .ROUTE ; Start 09/11/20 at 04:54; Stop 09/11/20 at 06:54; Status DC Lidocaine HCl (Lidocaine 1% 20ml Vial) 20 ml STK-MED ONCE .ROUTE Last administered on 09/11/20at 08:13; Start 09/11/20 at 07:00; Stop 09/11/20 at 07:01 ; Status DC Cellulose (Surgicel Fibrillar 1x2) 1 each STK-MED ONCE .ROUTE Last administered on 09/11/20at 08:14; Start 09/11/20 at 07:00; Stop 09/11/20 at 07:01; Status DC Dexmedetomidine HCl 400 mcg/ Sodium Chloride 100 ml @ 0 mls/hr CONT PRN IV PER PROTOCOL; Start 09/11/20 at 07:30 Sodium Chloride 1,000 ml @ 75 mls/hr [id number] IV ; Start 09/11/20 at 07:30 Labetalol HCl (Normodyne Iv Push) 10 mg PRN Q1HR PRN IVP HYPERTENSION; Start 09/11/20 at 07:30 Acetaminophen/ Hydrocodone Bitart (Lortab 5/325) 1 tab PRN Q4HRS PRN PO PAIN Last administered on 09/12/20at 04:44; Start 09/11/20 at 07:30 Morphine Sulfate (Morphine Sulfate) 2 mg PRN Q2HR PRN IV PAIN; Start 09/11/20 at 07:30 Hydralazine HCl (Apresoline Inj) 10 mg PRN Q2HRS PRN IVP ELEVATED BP, SEE COMMENTS; Start 09/11/20 at 07:30 Cefazolin Sodium/ Dextrose 50 ml @ 100 mls/hr Q8HRS IV Last administered on 09/11/20at 20:43; Start 09/11/20 at 14:00; Stop 09/11/20 at 22:29; Status DC Nicardipine HCl (Cardene) 25 mg STK-MED ONCE IV ; Start 09/11/20 at 08:03; Stop 09/11/20 at 08:03; Status DC Lidocaine HCl (Xylocaine 1% Pf 30ml Vial) 30 ml STK-MED ONCE .ROUTE Last administered on 09/11/20at 08:14; Start 09/11/20 at 08:06; Stop 09/11/20 at 08:07; Status DC Heparin Sodium (Porcine) (Heparin Sodium) 10,000 unit STK-MED ONCE .ROUTE ; Start 09/11/20 at 08:31; Stop 09/11/20 at 08:31; Status DC Phenylephrine HCl (PHENYLEPHRINE in 0.9% NACL PF) 1 mg STK-MED ONCE IV ; Start 09/11/20 at 08:50; Stop 09/11/20 at 08:50; Status DC Protamine Sulfate (Protamine) 50 mg STK-MED ONCE IV ; Start 09/11/20 at 09:24; Stop 09/11/20 at 09:25; Status DC Allopurinol (Zyloprim) 100 mg DAILY PO ; Start 09/12/20 at 09:00 Aspirin (Aspirin Chewable) 81 mg DAILY PO ; Start 09/12/20 at 09:00 Atorvastatin Calcium (Lipitor) 40 mg DAILY PO ; Start 09/12/20 at 09:00 Clopidogrel Bisulfate (Plavix) 75 mg DAILYWBKFT PO ; Start 09/12/20 at 08:00 Lisinopril (Prinivil) 5 mg DAILY PO ; Start 09/12/20 at 09:00 Metoprolol Succinate (Toprol Xl) 50 mg DAILY PO ; Start 09/12/20 at 09:00; Stop 09/11/20 at 13:56; Status DC Spironolactone (Aldactone) 25 mg DAILY PO ; Start 09/12/20 at 09:00 Tamsulosin HCl (Flomax) 0.4 mg DAILY PO ; Start 09/12/20 at 09:00 Sodium Chloride (Normal Saline Flush) 3 ml QSHIFT PRN IV AFTER MEDS AND BLOOD DRAWS; Start 09/11/20 at 11:15 Sodium Chloride 1,000 ml @ 70 mls/hr [id number] IV Last administered on 09/12/20at 04:51; Start 09/11/20 at 11:15 Ondansetron HCl (Zofran) 4 mg PRN Q4HRS PRN IV NAUSEA/VOMITING; Start 09/11/20 at 11:15 Acetaminophen (Tylenol) 650 mg PRN Q4HRS PRN PO TEMP OVER 100.4F OR MILD PAIN; Start 09/11/20 at 11:15 Acetaminophen (Tylenol Supp) 650 mg PRN Q4HRS PRN VA TEMP OVER 100.4F OR MILD PAIN; Start 09/11/20 at 11:15 Al Hydroxide/Mg Hydroxide (Mylanta Plus Xs) 30 ml PRN DAILY PRN PO HEARTBURN / GAS; Start 09/11/20 at 11:15 Docusate Sodium (Colace) 100 mg PRN BID PRN PO HARD STOOLS; Start 09/11/20 at 11:15 Albuterol Sulfate (Ventolin Neb Soln) 2.5 mg PRN Q4HRS PRN NEB SHORTNESS OF BREATH; Start 09/11/20 at 11:15 Guaifenesin (Robitussin) 200 mg PRN Q4HRS PRN PO COUGH; Start 09/11/20 at 11:15 Active Scripts Active Clopidogrel (Clopidogrel Bisulfate) 75 Mg Tablet 75 Mg PO [id number] 30 Days Lisinopril 5 Mg Tablet 1 Tab PO DAILY 30 Days Reported Aspirin 81 Mg Tab.chew 81 Mg PO DAILY Spironolactone 25 Mg Tablet 1 Tab PO DAILY Atorvastatin Calcium 40 Mg Tablet 1 Tab PO DAILY Toprol XL (Metoprolol Succinate) 50 Mg Tab.er.24h 50 Mg PO DAILY Allopurinol 100 Mg Tablet 1 Tab PO DAILY Once Daily (Multivitamin) 1 Each Tablet 1 Tab PO DAILY 30 Days Tamsulosin Hcl 0.4 Mg Cap.er.24h 1 Cap PO DAILY Vitals/I & O Vital Sign - Last 24 Hours 09/11/20 09/11/20 09/11/20 09/11/20 09:56 09:56 10:15 10:30 Temp 97.7 97.0 97.7 97.7 97.0 97.7 Pulse 53 50 50 Resp 15 15 17 B/P (MAP) 125/71 126/52 124/64 118/65 129/54 Pulse Ox 95 98 96 O2 Delivery Nasal Cannula Nasal Cannula Nasal Cannula Nasal Cannula O2 Flow Rate 4 4 4 4 09/11/20 09/11/20 09/11/20 09/11/20 10:45 11:00 11:00 11:06 Temp 97.7 97.7 97.7 97.7 Pulse 48 48 49 Resp 15 16 B/P (MAP) 129/68 133/67 124/66 (85) Pulse Ox 97 98 O2 Delivery Nasal Cannula Nasal Cannula Nasal Cannula O2 Flow Rate 4 4 4 09/11/20 09/11/20 09/11/20 09/11/20 11:17 11:21 11:36 11:51 Pulse 47 48 48 B/P (MAP) 133/65 (87) 131/68 (89) 132/67 (88) O2 Delivery Nasal Cannula O2 Flow Rate 2.0 09/11/20 09/11/20 09/11/20 09/11/20 12:21 12:51 13:21 13:51 Pulse 46 44 49 46 B/P (MAP) 141/67 (91) 120/58 (78) 131/60 (83) 120/65 (83) 09/11/20 09/11/20 09/11/20 09/11/20 14:51 15:00 15:49 15:51 Temp 97.4 97.4 Pulse 47 45 51 Resp 18 B/P (MAP) 139/73 (95) 139/73 (95) 148/65 (92) Pulse Ox 97 97 O2 Delivery Room Air Nasal Cannula O2 Flow Rate 2.0 09/11/20 09/11/20 09/11/20 09/11/20 16:51 17:20 17:51 18:56 Temp 97.4 97.4 Pulse 49 54 55 Resp 18 B/P (MAP) 147/71 (96) 139/67 (91) 133/64 (87) Pulse Ox 97 96 O2 Delivery Nasal Cannula Room Air O2 Flow Rate 2.0 09/11/20 09/11/20 09/11/20 09/12/20 20:46 21:16 22:32 00:48 Temp 98.3 98.3 Pulse 62 Resp 18 B/P (MAP) 153/68 (96) Pulse Ox 97 O2 Delivery Room Air Room Air Room Air Room Air 09/12/20 09/12/20 09/12/20 09/12/20 02:02 04:44 05:14 07:00 Temp 98.2 97.5 98.2 97.5 Pulse 57 61 Resp 19 14 B/P (MAP) 147/65 (92) 156/69 (98) Pulse Ox 97 96 O2 Delivery Room Air Room Air Room Air Room Air 09/12/20 07:49 O2 Delivery Room Air Intake and Output 09/11/20 09/11/20 09/12/20 15:00 23:00 07:00 Intake Total 700 ml 125 ml 990 ml Output Total 75 ml 245 ml 750 ml Balance 625 ml -120 ml 240 ml Justicifation of Admission Dx: Justifications for Admission: Justification of Admission Dx: Yes MARGOT LEIVA MD Sep 12, 2020 08:22
[2020-09-12] MEDS ORDERED: SPIRONOLACTONE 25 MG TABLET PO SCH (09:00)
[2020-09-12] MEDS ORDERED: METOPROLOL SUCC 24HR ER 50 MG TAB.ER.24H. PO SCH (09:00)
[2020-09-12] MEDS ORDERED: ATORVASTATIN CALCIUM 40 MG TABLET. PO SCH (09:00)
[2020-09-12] MEDS ORDERED: ASPIRIN CHEWABLE 81 MG TABLET. PO SCH (09:00)
[2020-09-12] MEDS ORDERED: ALLOPURINOL 100 MG TABLET. PO SCH (09:00)
[2020-09-12] MEDS ORDERED: LISINOPRIL 5 MG TABLET. PO SCH (09:00)
[2020-09-12] MEDS ORDERED: TAMSULOSIN 0.4 MG CAP.ER.24H. PO SCH (09:00)
--- NOTE | 2020-09-12 10:35 | PDOC ---
OCTAVIANO MANRIQUEZ NIMISHA 09/12/20 1035: CARDIO Progress Notes Date and Time Date of Service 09/12/20 Time of Evaluation 1030 Subjective Subjective: No Chest Pain, No shortness of breath, Other (mild surgical pain ) Vitals Vitals Vital Signs Date Time Temp Pulse Resp B/P (MAP) Pulse Ox O2 Delivery O2 Flow Rate FiO2 09/12/20 09:58 96 Room Air 09/12/20 09:04 61 156/69 09/12/20 07:00 97.5 14 97.5 09/11/20 17:20 2.0 Weight Weight [ ] Input and Output Intake and Output Intake and Output 09/12/20 07:00 Intake Total 1815 ml Output Total 1070 ml Balance 745 ml Intake Oral 225 ml IV Total 1590 ml Output Urine Total 950 ml Drainage Total 70 ml Estimated Blood Loss 50 ml Laboratory Labs Laboratory Tests Test 09/11/20 17:00 09/12/20 03:45 Urine Collection Type Unknown Urine Color Yellow Urine Clarity Clear Urine pH 7.0 (<5.0-8.0) Urine Specific Rush 1.025 (1.000-1.030) Urine Protein Negative mg/dL (NEG-TRACE) Urine Glucose (UA) Negative mg/dL (NEG) Urine Ketones (Stick) Negative mg/dL (NEG) Urine Blood Negative (NEG) Urine Nitrite Negative (NEG) Urine Bilirubin Negative (NEG) Urine Urobilinogen Dipstick 1.0 mg/dL (0.2 mg/dL) Urine Leukocyte Esterase Negative (NEG) Urine RBC Occ /HPF (0-2) Urine WBC 0 /HPF (0-4) Urine Bacteria 0 /HPF (0-FEW) White Blood Count 9.1 x10^3/uL (4.0-11.0) Red Blood Count 3.71 x10^6/uL (4.30-5.70) Hemoglobin 12.3 g/dL (13.0-17.5) Hematocrit 36.3 % (39.0-53.0) Mean Corpuscular Volume 98 fL (79-100) Mean Corpuscular Hemoglobin 33 pg (25-35) Mean Corpuscular Hemoglobin Concent 34 g/dL (31-37) Red Cell Distribution Width 13.6 % (11.5-14.5) Platelet Count 123 x10^3/uL (140-400) Neutrophils (%) (Auto) 66 % (31-73) Lymphocytes (%) (Auto) 20 % (24-48) Monocytes (%) (Auto) 9 % (0-9) Eosinophils (%) (Auto) 4 % (0-3) Basophils (%) (Auto) 0 % (0-3) Neutrophils # (Auto) 6.0 x10^3/uL (1.8-7.7) Lymphocytes # (Auto) 1.8 x10^3/uL (1.0-4.8) Monocytes # (Auto) 0.8 x10^3/uL (0.0-1.1) Eosinophils # (Auto) 0.4 x10^3/uL (0.0-0.7) Basophils # (Auto) 0.0 x10^3/uL (0.0-0.2) Sodium Level 140 mmol/L (136-145) Potassium Level 4.2 mmol/L (3.5-5.1) Chloride Level 106 mmol/L (98-107) Carbon Dioxide Level 28 mmol/L (21-32) Anion Gap 6 (6-14) Blood Urea Nitrogen 12 mg/dL (8-26) Creatinine 0.8 mg/dL (0.7-1.3) Estimated GFR (Cockcroft-Gault) 95.6 BUN/Creatinine Ratio 15 (6-20) Glucose Level 97 mg/dL (70-99) Calcium Level 8.3 mg/dL (8.5-10.1) Total Bilirubin 1.8 mg/dL (0.2-1.0) Aspartate Amino Transf (AST/SGOT) 15 U/L (15-37) Alanine Aminotransferase (ALT/SGPT) 24 U/L (16-63) Alkaline Phosphatase 92 U/L (46-116) Total Protein 6.4 g/dL (6.4-8.2) Albumin 3.4 g/dL (3.4-5.0) Albumin/Globulin Ratio 1.1 (1.0-1.7) Physical Exam HEENT: Neck Supple W Full Motion, Other (left neck drsg. IDANIA out) Chest: Symmetric LUNGS: Clear to Auscultation Heart: S1S2, RRR Abdomen: Soft N/T Extremities: No Edema Neurology: alert, oriented, follow commands Assessment Assessment 1. High-grade asymptomatic carotid stenosis; s/p left carotid endarterectomy with bovine pericardial patch. POD #1 2. CAD s/p CABG and subsequent PCI/stent with most recent PCI/WILLIAM to distal RCA as noted above (08/09/20). clinically stable 3. Hypertension; controlled 4. Hyperlipidemia; statin 5. Sinus bradycardia; lowest 40. Mean near 50. No pauses Recommendations Secondary prevention measures including DAPT with ASA/Plavix Statin therapy Resume metoprolol Follow vascular recs Supportive care Follow up in our office with Dr. Grimm Justicifation of Admission Dx: Justifications for Admission: Justification of Admission Dx: Yes LEIGH GRIMM MD 09/12/20 2100: CARDIO Progress Notes Assessment Assessment Patient seen and examined. Agree with OPERATIONS SECTION MANAGER's assessment and plan. s/p left CEA for carotid artery stenosis -continue postop care per vascular surgery CAD s/p CABG and more recent PCI/WILLIAM to RCA, clinically stable Resume dual antiplatelet therapy if okay with vascular surgery team Follow-up with our office as scheduled OCTAVIANO MANRIQUEZ APRN Sep 12, 2020 10:35 LEIGH GRIMM MD Sep 12, 2020 21:00
[2020-09-12 11:00] VITALS: BP 133/58
--- NOTE | 2020-09-12 11:05 | PDOC3 ---
Discharge Summary Date of Admission: Sep 11, 2020 Date of Discharge: Sep 12, 2020 Follow-Up: 3-5 days Admitting Diagnosis comment: POD #1 s/p left CEA VTE Prophylaxis Ordered VTE Prophylaxis Devices: Yes VTE Pharmacological Prophylaxi: discharge dx complications none consults vascular surgery d/c meds see MAR PROCEDURES == EX: M STATUS: ADM IN LOCATION: [address] [place] [address] DATE OF SURGERY: 09/11/2020 SURGEON: Dr. Taco Erickson. RAG BALER: JARETH Cardoza. PREOPERATIVE DIAGNOSIS: High-grade asymptomatic left internal carotid stenosis. POSTOPERATIVE DIAGNOSIS: High-grade asymptomatic left internal carotid stenosis. PROCEDURE: Left carotid endarterectomy with bovine patch angioplasty and intraoperative shunt. ANESTHESIA: Local with MAC. SPECIMENS: None. ESTIMATED BLOOD LOSS: 50 mL. COMPLICATIONS: None. PREOPERATIVE INDICATIONS: The patient is a 69-year-old male who was referred for a high-grade left internal carotid stenosis. The patient underwent percutaneous coronary intervention for perioperative risk stratification prior to surgery. He subsequently was consented for carotid endarterectomy and understood all risks, benefits and alternatives of the procedure prior to proceeding. Assessment/Plan impression ======== POD #1 s/p left CEA High-grade asymptomatic left internal carotid stenosis. with left carotid endarterectomy this morning. 09-11 recent sequential [place] to LAD/diagonal, patent SVG to OM/LCx with patent previously placed stent, known occlusion of SVG to PDA/PLV with significant 90 to 95% stenosis involving the distal segment of RCA. He underwent successful PCI/drug-eluting stent placement to RCA. 08-09-20 HX HYPERLIPIDEMIA ON statin, asa CAD; past CABG HTN: controlled plan ADMIT CVC BED consult vascular consult cardiology re recent PCI home meds scd's dvt prophylaxis [place] q 4 hrs HOME MEDS no lovenox, defer to vascular surgery History of Present Illness History of Present Illness Identification/Chief Complaint Chief Complaint post-op left CEA today, HC RECENT PCI/ CAD History of Present Illness History of Present Illness Mr. Kilgore is a 69 old male who was recently diagnosed with carotid artery stenosis and currently admitted for carotid endarterectomy by vascular surgery team He underwent stress test secondary to his history of coronary artery disease/CABG. in July this showed significant amount of inferior wall ischemia, he presented for cardiac catheterization that showed patent sequential [place] to LAD/diagonal, patent SVG to OM/LCx with patent previously placed stent, known occlusion of SVG to PDA/PLV with significant 90 to 95% stenosis involving the distal segment of RCA. He underwent successful PCI/drug-eluting stent placement to RCA. 08-09-20 Seen in PACU for Dr Erickson request today underwent appropriate perioperative risk stratification with cardiology and was found to be an acceptable candidate to proceed with surgery. Seen in PACU , mildly sedated Past Medical History Cardiovascular: CAD, HTN, Hyperlipidemia Pulmonary: Asthma CENTRAL NERVOUS SYSTEM: Other GI: No pertinent hx, Peptic Ulcer disease Heme/Onc: No pertinent hx Hepatobiliary: No pertinent hx Psych: No pertinent hx Musculoskeletal: low back pain, Osteoarthritis Rheumatologic: No pertinent hx Infectious disease: No pertinent hx ENT: No pertinent hx Renal/: No pertinent hx, Benign prostatic enlarg. Endocrine: No pertinent hx Past Surgical History Past Surgical History: CABG, Other Family History Family History: Coronary Artery Disease, High Cholestrol, Hypertension Social History ALCOHOL: none Drugs: None Current Medications Current Medications Current Medications Cefazolin Sodium 1 gm/Sodium Chloride 500 ml @ 500 mls/hr 1X ONCE IRR ; Start 09/11/20 at 06:00; Stop 09/11/20 at 06:59; Status DC Heparin Sodium (Porcine) 5000 unit/Ringer's Solution 505 ml @ 505 mls/hr 1X ON CE IRR ; Start 09/11/20 at 06:00; Stop 09/11/20 at 06:59; Status DC Fentanyl Citrate (Fentanyl 2ml Vial) 25 mcg PRN Q5MIN PRN IVP MILD PAIN 1-3; Start 09/11/20 at 06:00; Stop 09/11/20 at 19:00 Fentanyl Citrate (Fentanyl 2ml Vial) 50 mcg PRN Q5MIN PRN IVP MODERATE PAIN 4- 6; Start 09/11/20 at 06:00; Stop 09/11/20 at 19:00 Morphine Sulfate (Morphine Sulfate) 1 mg PRN Q10MIN PRN IVP SEVERE PAIN 7-10; Start 09/11/20 at 06:00; Stop 09/11/20 at 19:00 Ringer's Solution 1,000 ml @ 30 mls/hr Q24H IV Last administered on 09/11/20at 06:32; Start 09/11/20 at 06:00; Stop 09/11/20 at 17:59 Hydromorphone HCl (Dilaudid) 0.5 mg PRN Q10MIN PRN IVP SEVERE PAIN 7-10, 2nd CHOICE; Start 09/11/20 at 06:00; Stop 09/11/20 at 19:00 Prochlorperazine Edisylate (Compazine) 5 mg PACU PRN PRN IVP NAUSEA, MRX1; Start 09/11/20 at 06:00; Stop 09/11/20 at 19:00 Cefazolin Sodium/ Dextrose 50 ml @ 100 mls/hr 1X PREOP PRN IV PRIOR TO PROCEDURE; Start 09/11/20 at 06:00; Stop 09/11/20 at 10:29; Status DC Ropivacaine (Naropin 0.5%) 20 ml STK-MED ONCE .ROUTE ; Start 09/11/20 at 04:54; Stop 09/11/20 at 06:54; Status DC Lidocaine HCl (Lidocaine 1% 20ml Vial) 20 ml STK-MED ONCE .ROUTE Last administered on 09/11/20at 08:13; Start 09/11/20 at 07:00; Stop 09/11/20 at 07:01; Status DC Cellulose (Surgicel Fibrillar 1x2) 1 each STK-MED ONCE .ROUTE Last administered on 09/11/20at 08:14; Start 09/11/20 at 07:00; Stop 09/11/20 at 07:01; Status DC Dexmedetomidine HCl 400 mcg/ Sodium Chloride 100 ml @ 0 mls/hr CONT PRN IV PER PROTOCOL; Start 09/11/20 at 07:30 Sodium Chloride 1,000 ml @ 75 mls/hr [id number] IV ; Start 09/11/20 at 07:30 Labetalol HCl (Normodyne Iv Push) 10 mg PRN Q1HR PRN IVP HYPERTENSION; Start 09/11/20 at 07:30 Acetaminophen/ Hydrocodone Bitart (Lortab 5/325) 1 tab PRN Q4HRS PRN PO PAIN; Start 09/11/20 at 07:30 Morphine Sulfate (Morphine Sulfate) 2 mg PRN Q2HR PRN IV PAIN; Start 09/11/20 at 07:30 Hydralazine HCl (Apresoline Inj) 10 mg PRN Q2HRS PRN IVP ELEVATED BP, SEE COMMENTS; Start 09/11/20 at 07:30 Cefazolin Sodium/ Dextrose 50 ml @ 100 mls/hr Q8HRS IV ; Start 09/11/20 at 14:00; Stop 09/11/20 at 22:29 Nicardipine HCl (Cardene) 25 mg STK-MED ONCE IV ; Start 09/11/20 at 08:03; Stop 09/11/20 at 08:03; Status DC Lidocaine HCl (Xylocaine 1% Pf 30ml Vial) 30 ml STK-MED ONCE .ROUTE Last administered on 09/11/20at 08:14; Start 09/11/20 at 08:06; Stop 09/11/20 at 08:07; Status DC Heparin Sodium (Porcine) (Heparin Sodium) 10,000 unit STK-MED ONCE .ROUTE ; Start 09/11/20 at 08:31; Stop 09/11/20 at 08:31; Status DC Phenylephrine HCl (PHENYLEPHRINE in 0.9% NACL PF) 1 mg STK-MED ONCE IV ; Start 09/11/20 at 08:50; Stop 09/11/20 at 08:50; Status DC Protamine Sulfate (Protamine) 50 mg STK-MED ONCE IV ; Start 09/11/20 at 09:24; Stop 09/11/20 at 09:25; Status DC Allopurinol (Zyloprim) 100 mg DAILY PO ; Start 09/12/20 at 09:00 Aspirin (Aspirin Chewable) 81 mg DAILY PO ; Start 09/12/20 at 09:00 Atorvastatin Calcium (Lipitor) 40 mg DAILY PO ; Start 09/12/20 at 09:00 Clopidogrel Bisulfate (Plavix) 75 mg DAILYWBKFT PO ; Start 09/12/20 at 08:00 Lisinopril (Prinivil) 5 mg DAILY PO ; Start 09/12/20 at 09:00 Metoprolol Succinate (Toprol Xl) 50 mg DAILY PO ; Start 09/12/20 at 09:00 Spironolactone (Aldactone) 25 mg DAILY PO ; Start 09/12/20 at 09:00 Tamsulosin HCl (Flomax) 0.4 mg DAILY PO ; Start 09/12/20 at 09:00 Active Scripts Active Clopidogrel (Clopidogrel Bisulfate) 75 Mg Tablet 75 Mg PO DAILYWBKFT 30 Days Lisinopril 5 Mg Tablet 1 Tab PO DAILY 30 Days Reported Aspirin 81 Mg Tab.chew 81 Mg PO DAILY Spironolactone 25 Mg Tablet 1 Tab PO DAILY Atorvastatin Calcium 40 Mg Tablet 1 Tab PO DAILY Toprol XL (Metoprolol Succinate) 50 Mg Tab.er.24h 50 Mg PO DAILY Allopurinol 100 Mg Tablet 1 Tab PO DAILY Once Daily (Multivitamin) 1 Each Tablet 1 Tab PO DAILY 30 Days Tamsulosin Hcl 0.4 Mg Cap.er.24h 1 Cap PO DAILY Allergies Allergies: Coded Allergies: No Known Drug Allergies (Unverified , 10/03/15) ROS Review of System 14 pt ros otherwise neg General: No: Chills, Night Sweats, Fatigue, Malaise, Appetite, Other PSYCHOLOGICAL ROS: No: Anxiety, Behavioral Disorder, Concentration difficultie, Decreased libido, Depression, Disorientation, Hallucinations, Hostility, Irritablity, Memory difficulties, Mood Swings, Obsessive thoughts, Physical abuse, Sexual abuse, Sleep disturbances, Suicidal ideation, Other Eyes: No Blurry vision, No Decreased vision, No Double vision, No Dry eyes, No Excessive tearing, No Eye Pain, No Itchy Eyes, No Loss of vision, No Photophobia, No Scotomata, No Uses contacts, No Uses glasses, No Other HEENT: No: Heacaches, Visual Changes, Hearing change, Nasal congestion, Nasal discharge, Oral lesions, Sinus pain, Sore Throat, Epistaxis, Sneezing, Snoring, Tinnitus, Vertigo, Vocal changes, Other ALLERGY AND IMMUNOLOGY: No: Hives, Insect Bite Sensitivity, Itchy/Watery Eyes, Nasal Congestion, Post Nasal Drip, Seasonal Allergies, Other Hematological and Lymphatic: No: Bleeding Problems, Blood Clots, Blood Transfusions, Brusing, Night Sweats, Pallor, Swollen Lymph Nodes, Other ENDOCRINE: No: Breast Changes, Galactorrhea, Hair Pattern Changes, Hot Flashes, Malaise/lethargy, Mood Swings, Palpitations, Polydipsia/polyuria, Skin Changes, Temperature Intolerance, Unexpected Weight Changes, Other Breast: No New/Changing Breast Lumps, No Nipple changes, No Nipple discharge, No Other Respiratory: No: Cough, Hemoptysis, Orthopnea, Pleuritic Pain, Shortness of breath, SOB with excertion, Sputum Changes, Stridor, Tachypnea, Wheezing, Other Cardiovascular: No Chest Pain, No Palpitations, No Orthopnea, No Paroxysmal Noc. Dyspnea, No Edema, No Lt Headedness, No Other Gastrointestinal: No Nausea, No Vomiting, No Abdominal Pain, No Diarrhea, No Constipation, No Melena, No Hematochezia, No Other Genitourinary: No Dysuria, No Frequency, No Incontinence, No Hematuria, No Retention, No Discharge, No Urgency, No Pain, No Flank Pain, No Other, No , No , No , No , No , No , No Musculoskeletal: No Gait Disturbance, No Joint Pain, No Joint Stiffness, No Joint Swelling, No Muscle Pain, No Muscular Weakness, No Pain In:, No Swelling In:, No Other Neurological: No Behavorial Changes, No Bowel/Bladder ControlChng, No Confusion, No Dizziness, No Gait Disturbance, No Headaches, No Impaired Coord/balance, No Memory Loss, No Numbness/Tingling, No Seizures, No Speech Problems, No Tremors, No Visual Changes, No Weakness, No Other Skin: No Dry Skin, No Eczema, No Hair Changes, No Lumps, No Mole Changes, No M ottling, No Nail Changes, No Pruritus, No Rash, No Skin Lesion Changes, No Other, No Acne POD #1 s/p left CEA High-grade asymptomatic left internal carotid stenosis. with left carotid endarterectomy 09-12 DOING WELL , ambulate, home later today if ok with vascular surgery D/C PLANNING 25 MIN Brief Hospital Course Mr. Kilgore is a 69 old [sex] who presented with [ CAROTID STENOSIS] CONDITION AT DISCHARGE: Improved Discharge Medications Current Medications Cefazolin Sodium 1 gm/Sodium Chloride 500 ml @ 500 mls/hr 1X ONCE IRR ; Start 09/11/20 at 06:00; Stop 09/11/20 at 06:59; Status DC Heparin Sodium (Porcine) 5000 unit/Ringer's Solution 505 ml @ 505 mls/hr 1X ONCE IRR ; Start 09/11/20 at 06:00; Stop 09/11/20 at 06:59; Status DC Fentanyl Citrate (Fentanyl 2ml Vial) 25 mcg PRN Q5MIN PRN IVP MILD PAIN 1-3; Start 09/11/20 at 06:00; Stop 09/11/20 at 19:00; Status DC Fentanyl Citrate (Fentanyl 2ml Vial) 50 mcg PRN Q5MIN PRN IVP MODERATE PAIN 4- 6; Start 09/11/20 at 06:00; Stop 09/11/20 at 19:00; Status DC Morphine Sulfate (Morphine Sulfate) 1 mg PRN Q10MIN PRN IVP SEVERE PAIN 7-10; Start 09/11/20 at 06:00; Stop 09/11/20 at 19:00; Status DC Ringer's Solution 1,000 ml @ 30 mls/hr Q24H IV Last administered on 09/11/20at 06:32; Start 09/11/20 at 06:00; Stop 09/11/20 at 17:59; Status DC Hydromorphone HCl (Dilaudid) 0.5 mg PRN Q10MIN PRN IVP SEVERE PAIN 7-10, 2nd CHOICE; Start 09/11/20 at 06:00; Stop 09/11/20 at 19:00; Status DC Prochlorperazine Edisylate (Compazine) 5 mg PACU PRN PRN IVP NAUSEA, MRX1; Start 09/11/20 at 06:00; Stop 09/11/20 at 19:00; Status DC Cefazolin Sodium/ Dextrose 50 ml @ 100 mls/hr 1X PREOP PRN IV PRIOR TO PROCEDURE; Start 09/11/20 at 06:00; Stop 09/11/20 at 10:29; Status DC Ropivacaine (Naropin 0.5%) 20 ml STK-MED ONCE .ROUTE ; Start 09/11/20 at 04:54; Stop 09/11/20 at 06:54; Status DC Lidocaine HCl (Lidocaine 1% 20ml Vial) 20 ml STK-MED ONCE .ROUTE Last administered on 09/11/20at 08:13; Start 09/11/20 at 07:00; Stop 09/11/20 at 07:01; Status DC Cellulose (Surgicel Fibrillar 1x2) 1 each STK-MED ONCE .ROUTE Last administered on 09/11/20at 08:14; Start 09/11/20 at 07:00; Stop 09/11/20 at 07:01; Status DC Dexmedetomidine HCl 400 mcg/ Sodium Chloride 100 ml @ 0 mls/hr CONT PRN IV PER PROTOCOL; Start 09/11/20 at 07:30 Sodium Chloride 1,000 ml @ 75 mls/hr [id number] IV ; Start 09/11/20 at 07:30 Labetalol HCl (Normodyne Iv Push) 10 mg PRN Q1HR PRN IVP HYPERTENSION; Start 09/11/20 at 07:30 Acetaminophen/ Hydrocodone Bitart (Lortab 5/325) 1 tab PRN Q4HRS PRN PO PAIN Last administered on 09/12/20at 09:04; Start 09/11/20 at 07:30 Morphine Sulfate (Morphine Sulfate) 2 mg PRN Q2HR PRN IV PAIN; Start 09/11/20 at 07:30 Hydralazine HCl (Apresoline Inj) 10 mg PRN Q2HRS PRN IVP ELEVATED BP, SEE COMMENTS; Start 09/11/20 at 07:30 Cefazolin Sodium/ Dextrose 50 ml @ 100 mls/hr Q8HRS IV Last administered on 09/11/20at 20:43; Start 09/11/20 at 14:00; Stop 09/11/20 at 22:29; Status DC Nicardipine HCl (Cardene) 25 mg STK-MED ONCE IV ; Start 09/11/20 at 08:03; Stop 09/11/20 at 08:03; Status DC Lidocaine HCl (Xylocaine 1% Pf 30ml Vial) 30 ml STK-MED ONCE .ROUTE Last administered on 09/11/20at 08:14; Start 09/11/20 at 08:06; Stop 09/11/20 at 08:07; Status DC Heparin Sodium (Porcine) (Heparin Sodium) 10,000 unit STK-MED ONCE .ROUTE ; Start 09/11/20 at 08:31; Stop 09/11/20 at 08:31; Status DC Phenylephrine HCl (PHENYLEPHRINE in 0.9% NACL PF) 1 mg STK-MED ONCE IV ; Start 09/11/20 at 08:50; Stop 09/11/20 at 08:50; Status DC Protamine Sulfate (Protamine) 50 mg STK-MED ONCE IV ; Start 09/11/20 at 09:24; Stop 09/11/20 at 09:25; Status DC Allopurinol (Zyloprim) 100 mg DAILY PO Last administered on 09/12/20at 09:04; Start 09/12/20 at 09:00 Aspirin (Aspirin Chewable) 81 mg DAILY PO Last administered on 09/12/20at 09:03; Start 09/12/20 at 09:00 Atorvastatin Calcium (Lipitor) 40 mg DAILY PO Last administered on 09/12/20at 09:03; Start 09/12/20 at 09:00 Clopidogrel Bisulfate (Plavix) 75 mg DAILYWBKFT PO Last administered on 09/12/20 at 09:03; Start 09/12/20 at 08:00 Lisinopril (Prinivil) 5 mg DAILY PO Last administered on 09/12/20at 09:04; Start 09/12/20 at 09:00 Metoprolol Succinate (Toprol Xl) 50 mg DAILY PO ; Start 09/12/20 at 09:00; Stop 09/11/20 at 13:56; Status DC Spironolactone (Aldactone) 25 mg DAILY PO Last administered on 09/12/20at 09:04; Start 09/12/20 at 09:00 Tamsulosin HCl (Flomax) 0.4 mg DAILY PO Last administered on 09/12/20at 09:03; Start 09/12/20 at 09:00 Sodium Chloride (Normal Saline Flush) 3 ml QSHIFT PRN IV AFTER MEDS AND BLOOD DRAWS; Start 09/11/20 at 11:15 Sodium Chloride 1,000 ml @ 70 mls/hr [id number] IV Last administered on 09/12/20at 04:51; Start 09/11/20 at 11:15; Stop 09/12/20 at 08:26; Status DC Ondansetron HCl (Zofran) 4 mg PRN Q4HRS PRN IV NAUSEA/VOMITING; Start 09/11/20 at 11:15 Acetaminophen (Tylenol) 650 mg PRN Q4HRS PRN PO TEMP OVER 100.4F OR MILD PAIN; Start 09/11/20 at 11:15 Acetaminophen (Tylenol Supp) 650 mg PRN Q4HRS PRN VA TEMP OVER 100.4F OR MILD PAIN; Start 09/11/20 at 11:15 Al Hydroxide/Mg Hydroxide (Mylanta Plus Xs) 30 ml PRN DAILY PRN PO HEARTBURN / GAS; Start 09/11/20 at 11:15 Docusate Sodium (Colace) 100 mg PRN BID PRN PO HARD STOOLS; Start 09/11/20 at 11:15 Albuterol Sulfate (Ventolin Neb Soln) 2.5 mg PRN Q4HRS PRN NEB SHORTNESS OF BREATH; Start 09/11/20 at 11:15 Guaifenesin (Robitussin) 200 mg PRN Q4HRS PRN PO COUGH; Start 09/11/20 at 11:15 Active Scripts Active Clopidogrel (Clopidogrel Bisulfate) 75 Mg Tablet 75 Mg PO DAILYWBKFT 30 Days Lisinopril 5 Mg Tablet 1 Tab PO DAILY 30 Days Reported Aspirin 81 Mg Tab.chew 81 Mg PO DAILY Spironolactone 25 Mg Tablet 1 Tab PO DAILY Atorvastatin Calcium 40 Mg Tablet 1 Tab PO DAILY Toprol XL (Metoprolol Succinate) 50 Mg Tab.er.24h 50 Mg PO DAILY Allopurinol 100 Mg Tablet 1 Tab PO DAILY Once Daily (Multivitamin) 1 Each Tablet 1 Tab PO DAILY 30 Days Tamsulosin Hcl 0.4 Mg Cap.er.24h 1 Cap PO DAILY Vital Signs Vital Signs Date Time Temp Pulse Resp B/P (MAP) Pulse Ox O2 Delivery O2 Flow Rate FiO2 09/12/20 09:58 96 Room Air 09/12/20 09:04 61 156/69 09/12/20 07:00 97.5 14 97.5 09/11/20 17:20 2.0 Labs Laboratory Tests Test 09/11/20 06:27 09/11/20 17:00 09/12/20 03:45 White Blood Count 8.0 x10^3/uL (4.0-11.0) 9.1 x10^3/uL (4.0-11.0) Red Blood Count 3.83 x10^6/uL (4.30-5.70) 3.71 x10^6/uL (4.30-5.70) Hemoglobin 12.8 g/dL (13.0-17.5) 12.3 g/dL (13.0-17.5) Hematocrit 37.7 % (39.0-53.0) 36.3 % (39.0-53.0) Mean Corpuscular Volume 98 fL (79-100) 98 fL (79-100) Mean Corpuscular Hemoglobin 33 pg (25-35) 33 pg (25-35) Mean Corpuscular Hemoglobin Concent 34 g/dL (31-37) 34 g/dL (31-37) Red Cell Distribution Width 13.7 % (11.5-14.5) 13.6 % (11.5-14.5) Platelet Count 137 x10^3/uL (140-400) 123 x10^3/uL (140-400) Neutrophils (%) (Auto) 59 % (31-73) 66 % (31-73) Lymphocytes (%) (Auto) 26 % (24-48) 20 % (24-48) Monocytes (%) (Auto) 9 % (0-9) 9 % (0-9) Eosinophils (%) (Auto) 6 % (0-3) 4 % (0-3) Basophils (%) (Auto) 0 % (0-3) 0 % (0-3) Neutrophils # (Auto) 4.7 x10^3/uL (1.8-7.7) 6.0 x10^3/uL (1.8-7.7) Lymphocytes # (Auto) 2.1 x10^3/uL (1.0-4.8) 1.8 x10^3/uL (1.0-4.8) Monocytes # (Auto) 0.7 x10^3/uL (0.0-1.1) 0.8 x10^3/uL (0.0-1.1) Eosinophils # (Auto) 0.5 x10^3/uL (0.0-0.7) 0.4 x10^3/uL (0.0-0.7) Basophils # (Auto) 0.0 x10^3/uL (0.0-0.2) 0.0 x10^3/uL (0.0-0.2) Sodium Level 142 mmol/L (136-145) 140 mmol/L (136-145) Potassium Level 4.1 mmol/L (3.5-5.1) 4.2 mmol/L (3.5-5.1) Chloride Level 108 mmol/L (98-107) 106 mmol/L (98-107) Carbon Dioxide Level 24 mmol/L (21-32) 28 mmol/L (21-32) Anion Gap 10 (6-14) 6 (6-14) Blood Urea Nitrogen 16 mg/dL (8-26) 12 mg/dL (8-26) Creatinine 1.1 mg/dL (0.7-1.3) 0.8 mg/dL (0.7-1.3) Estimated GFR (Cockcroft-Gault) 66.2 95.6 Glucose Level 103 mg/dL (70-99) 97 mg/dL (70-99) Calcium Level 8.8 mg/dL (8.5-10.1) 8.3 mg/dL (8.5-10.1) Urine Collection Type Unknown Urine Color Yellow Urine Clarity Clear Urine pH 7.0 (<5.0-8.0) Urine Specific [place] 1.025 (1.000-1.030) Urine Protein Negative mg/dL (NEG-TRACE) Urine Glucose (UA) Negative mg/dL (NEG) Urine Ketones (Stick) Negative mg/dL (NEG) Urine Blood Negative (NEG) Urine Nitrite Negative (NEG) Urine Bilirubin Negative (NEG) Urine Urobilinogen Dipstick 1.0 mg/dL (0.2 mg/dL) Urine Leukocyte Esterase Negative (NEG) Urine RBC Occ /HPF (0-2) Urine WBC 0 /HPF (0-4) Urine Bacteria 0 /HPF (0-FEW) BUN/Creatinine Ratio 15 (6-20) Total Bilirubin 1.8 mg/dL (0.2-1.0) Aspartate Amino Transf (AST/SGOT) 15 U/L (15-37) Alanine Aminotransferase (ALT/SGPT) 24 U/L (16-63) Alkaline Phosphatase 92 U/L (46-116) Total Protein 6.4 g/dL (6.4-8.2) Albumin 3.4 g/dL (3.4-5.0) Albumin/Globulin Ratio 1.1 (1.0-1.7) Laboratory Tests Test 09/11/20 17:00 09/12/20 03:45 Urine Collection Type Unknown Urine Color Yellow Urine Clarity Clear Urine pH 7.0 (<5.0-8.0) Urine Specific [place] 1.025 (1.000-1.030) Urine Protein Negative mg/dL (NEG-TRACE) Urine Glucose (UA) Negative mg/dL (NEG) Urine Ketones (Stick) Negative mg/dL (NEG) Urine Blood Negative (NEG) Urine Nitrite Negative (NEG) Urine Bilirubin Negative (NEG) Urine Urobilinogen Dipstick 1.0 mg/dL (0.2 mg/dL) Urine Leukocyte Esterase Negative (NEG) Urine RBC Occ /HPF (0-2) Urine WBC 0 /HPF (0-4) Urine Bacteria 0 /HPF (0-FEW) White Blood Count 9.1 x10^3/uL (4.0-11.0) Red Blood Count 3.71 x10^6/uL (4.30-5.70) Hemoglobin 12.3 g/dL (13.0-17.5) Hematocrit 36.3 % (39.0-53.0) Mean Corpuscular Volume 98 fL (79-100) Mean Corpuscular Hemoglobin 33 pg (25-35) Mean Corpuscular Hemoglobin Concent 34 g/dL (31-37) Red Cell Distribution Width 13.6 % (11.5-14.5) Platelet Count 123 x10^3/uL (140-400) Neutrophils (%) (Auto) 66 % (31-73) Lymphocytes (%) (Auto) 20 % (24-48) Monocytes (%) (Auto) 9 % (0-9) Eosinophils (%) (Auto) 4 % (0-3) Basophils (%) (Auto) 0 % (0-3) Neutrophils # (Auto) 6.0 x10^3/uL (1.8-7.7) Lymphocytes # (Auto) 1.8 x10^3/uL (1.0-4.8) Monocytes # (Auto) 0.8 x10^3/uL (0.0-1.1) Eosinophils # (Auto) 0.4 x10^3/uL (0.0-0.7) Basophils # (Auto) 0.0 x10^3/uL (0.0-0.2) Sodium Level 140 mmol/L (136-145) Potassium Level 4.2 mmol/L (3.5-5.1) Chloride Level 106 mmol/L (98-107) Carbon Dioxide Level 28 mmol/L (21-32) Anion Gap 6 (6-14) Blood Urea Nitrogen 12 mg/dL (8-26) Creatinine 0.8 mg/dL (0.7-1.3) Estimated GFR (Cockcroft-Gault) 95.6 BUN/Creatinine Ratio 15 (6-20) Glucose Level 97 mg/dL (70-99) Calcium Level 8.3 mg/dL (8.5-10.1) Total Bilirubin 1.8 mg/dL (0.2-1.0) Aspartate Amino Transf (AST/SGOT) 15 U/L (15-37) Alanine Aminotransferase (ALT/SGPT) 24 U/L (16-63) Alkaline Phosphatase 92 U/L (46-116) Total Protein 6.4 g/dL (6.4-8.2) Albumin 3.4 g/dL (3.4-5.0) Albumin/Globulin Ratio 1.1 (1.0-1.7) Allergies Allergies Coded Allergies Type Severity Reaction Last Updated Verified No Known Drug Allergies 10/03/15 No Disposition/Orders: D/C to Home Justicifation of Admission Dx: Justifications for Admission: Justification of Admission Dx: Yes MARGOT LEIVA MD Sep 12, 2020 11:05
[2020-09-12] MEDS ORDERED: DOCU-153 PO (11:09)
[2020-09-12] MEDS ORDERED: HYDR-2761 PO (11:09)
[2020-09-12] MEDS ORDERED: MAG30ORA2 PO (11:09)
--- NOTE | 2020-09-12 11:10 | DISCH ---
DISCHARGE INSTRUCTIONS Condition on Discharge Condition on Discharge: Stable Activity After Discharge Activity Instructions for Disc: Activity as tolerated Lifting Instructions after Dis: No heavy lifting, No pulling or pushing, Do not lift >10 pounds Driving Instructions after Dis: Do not drive, Do not drive today Weight Bearing Status after Di: As tolerated Diet after Discharge Diet after Discharge: Cardiac Diet Texture: Regular Liquid Texture: Thin Liquid Wound Incision Care Wound/Incision Care: No wound care needed Checks after Discharge Checks after discharge: Check blood press - daily, Check your Temp as needed Contacting the [facility] after DC Call your doctor for: If your condition worsens Follow-Up Follow up with: DR LOPEZ 1-2 WEEKS DIRECTED, SEE PCP SOON Treatment/Equipment after DC Adaptive Equipment Issued: None MARGOT LEIVA MD Sep 12, 2020 11:10
--- NOTE | 2020-09-12 14:03 | NUR ---
SS following for discharge planning. SS reviewed pt chart and discussed with pt RN. Pt is from home with spouse and is currently on room air. Pt had left Carotid. Left IDANIA drain pulled. Anticipate discharge to home today. SS discussed with Dr. Garcia. SS will continue to follow for discharge planning.
--- NOTE | 2020-09-12 15:41 | NUR ---
Discharge Note: PHILIPP MCNEILL [address] Discharge instructions and discharge home medications reviewed with Patient and a copy given. All questions have been answered and understanding verbalized. The following instructions and handouts were given: Incisional care, endarterectomy care, Lortab. Patient discharged to home with via ambulation and self care. IV out, monitor off and placed at nurses station.
== END 2020-09-12 15:15 | disposition home or self-care (01) | DRG 39 ==
LOC: SURG 05:56 → 2 SOUTH 10:13 → OBSVTOIN 15:00
PROVIDERS: ADMIT Family Medicine; ATTEND Surgery
PROC: 03UL0KZ Supplement Left Internal Carotid Artery with Nonautologous Tissue Substitute, Open Approach (ICD-10-PCS; 2020-09-11)
PROC: 03CL0ZZ Extirpation of Matter from Left Internal Carotid Artery, Open Approach (ICD-10-PCS; principal; 2020-09-11 07:30)
DX: I65.22 Occlusion and stenosis of left carotid artery (principal); I25.10 Atherosclerotic heart disease of native coronary artery without angina pectoris; E78.5 Hyperlipidemia, unspecified; I10 Essential (primary) hypertension; M19.90 Unspecified osteoarthritis, unspecified site; Z51.5 Encounter for palliative care; J45.909 Unspecified asthma, uncomplicated; Z95.1 Presence of aortocoronary bypass graft; Z82.49 Family history of ischemic heart disease and other diseases of the circulatory system; Z95.5 Presence of coronary angioplasty implant and graft; Z87.11 Personal history of peptic ulcer disease; Z79.82 Long term (current) use of aspirin; Z79.899 Other long term (current) drug therapy
CPT/HCPCS: 36415; 80048; 80053; 81001; 85025; A4222; A4223; A4364; A4930; A6257; A6402; C1751; C1768; G0378; G0379; J0690; J1644; J2370; J2720; J2795; J3490; J7030; J7040; J7120; U0003; U0005

== ENCOUNTER → 2021-03-26 | Outpatient (CLI) | payer MEDICARE ==
[~2021-03-26] MED LIST changes: +DOCU-148 PO; +HYDR-2761 PO; -LISI-517 PO; +LISI5TAB15 PO; +MAG30ORA2 PO; -ROPIVacaine 0.5% PF 20 ML VIAL. ONE
--- NOTE | 2021-03-26 12:18 | CARD ---
MR#: [id number] Date of Study: 03/26/2021 Ordering Physician: LEIGH FISH, Referring Physician: LEIGH FISH, Tech: Arely Butler DANYEL APPROVED REPORT EXAM: Two-dimensional and M-mode echocardiogram with Doppler and color Doppler. Other Information Quality : GoodHR: 64bpm INDICATION CAD Surgery/Intervention CABG: Date: 2008 Site: [facility] RISK FACTORS Hypertension Hyperlipidemia Asthma 2D DIMENSIONS RVDd3.6 (2.9-3.5cm)Left Atrium(2D)4.7 (1.6-4.0cm) IVSd0.9 (0.7-1.1cm)Aortic Root(2D)3.4 (2.0-3.7cm) LVDd5.8 (3.9-5.9cm)LVOT Diameter2.2 (1.8-2.4cm) PWd0.9 (0.7-1.1cm)LVDs3.9 (2.5-4.0cm) FS (%) 32.6 %SV98.5 ml Aortic Valve AoV Peak Donovan.142.2cm/sAoV VTI29.7cm AO Peak GR.8.1mmHgLVOT Peak Donovan.88.7cm/s LVOT VTI 18.49cmAO Mean GR.4mmHg DYLAN (VMAX)1.22ca9BQD (VTI)2.40cm2 Mitral Valve MV E Zymagnny40.9cm/sMV DECEL RTQA589zs MV A Dvepqbim46.9cm/sMV E Mean Gr.1mmHg MV NUQ27kqD/A Ratio1.2 MVA (PHT)2.87cm2 TDI E/Lateral E'6.8E/Medial E'7.7 Pulmonary Valve PV Peak Hmkbmdyv356.0cm/sPV Peak Grad.5mmHg Tricuspid Valve TR P. Ugcxlued668eu/sRAP EOIOFBVC3pjXt TR Peak Gr.36klBuBQZL74bmOz Pulmonary Vein S1 Tjuoxszv34.9cm/sD2 Nigkithj02.4cm/s PVa sdyqhrjq170bbgd LEFT VENTRICLE The left ventricle is normal size. There is normal left ventricular wall thickness. The left ventricu lar systolic function is normal and the ejection fraction is within normal range. The Ejection Fracti on is 50-55%. There is normal LV segmental wall motion. Transmitral Doppler flow pattern is Grade II- pseudonormal filling dynamics. RIGHT VENTRICLE The right ventricle is borderline dilated. There is normal right ventricular wall thickness. The righ t ventricular systolic function is normal. ATRIA The left atrium is mildly dilated. The right atrium is mildly dilated. The interatrial septum is inta ct with no evidence for an atrial septal defect or patent foramen ovale as noted on 2-D or Doppler im aging. AORTIC VALVE The aortic valve is calcified. Doppler and Color Flow revealed trace aortic regurgitation. There is n o significant aortic valvular stenosis. Calculated aortic valve area is 2.36 cm2 with maximum pressur e gradient of 11 mmHg and mean pressure gradient of 5 mmHg. MITRAL VALVE The mitral valve is normal in structure and function. There is no evidence of mitral valve prolapse. There is no mitral valve stenosis. Doppler and Color-flow revealed trace mitral regurgitation. TRICUSPID VALVE The tricuspid valve is normal in structure and function. Doppler and Color Flow revealed trace tricus pid regurgitation with an estimated PAP of 25 mmHg. There is no tricuspid valve stenosis. PULMONIC VALVE The pulmonary valve is normal in structure and function. Doppler and Color Flow revealed trace pulmon ic valvular regurgitation. GREAT VESSELS The aortic root is normal in size. The ascending aorta is normal in size. The IVC is normal in size a nd collapses >50% with inspiration. PERICARDIAL EFFUSION There is no evidence of significant pericardial effusion. Critical Notification Critical Value: No <Conclusion> The left ventricle is normal size. The left ventricular systolic function is normal and the ejection fraction is within normal range. The Ejection Fraction is 50-55%. Doppler and Color Flow revealed trace aortic regurgitation. There is no significant aortic valvular stenosis. Doppler and Color-flow revealed trace mitral regurgitation. Doppler and Color Flow revealed trace tricuspid regurgitation with an estimated PAP of 25 mmHg. Signed by : Robi Hamilton MD Electronically Approved : 03/26/2021 12:17:57
--- NOTE | 2021-03-26 12:41 | RAD ---
MR#: [id number] Date of Study: 03/26/2021 Ordering Physician: LEIGH FISH, Referring Physician: LEIGH FISH, Tech: Archana Her RT R, CT RDMS AB, T APPROVED REPORT Patient Location: OUT-PATIENT Indications Rest Pain:Bilaterally Risk Factors Cardiac Disease VELOCITY AND DOPPLER WAVEFORM ANALYSIS RIGHT cm/secWaveformSeverity LEFT cm/secWaveform Severity dCFA 132.0TriphasicNormaldCFA 78.0TriphasicNormal Prof Fem Art. 158.0TriphasicNormalProf Fem Art. 58.0BiphasicMild < 50% Fem Art Prox. 99.0TriphasicNormalFem Art Prox. 128.0BiphasicMild < 50% Fem Art Mid. 108.0TriphasicNormalFem Art Mid. 68.0BiphasicMild < 50% Fem Art Dist. 73.0TriphasicNormalFem Art Dist. 78.0TriphasicNormal Pop Art(Fossa) 68.0TriphasicNormalPop Art(AK) 70.0BiphasicMild < 50% LITHOGRAPH PRESS FEEDER Prox. 56.0TriphasicNormalPTA Prox. 94.0BiphasicMild < 50% LITHOGRAPH PRESS FEEDER Dist. 82.0TriphasicNormalPTA Dist. 70.0BiphasicMild < 50% Per Art Mid. 43.0TriphasicNormalPer Art Mid. 78.0BiphasicMild < 50% ТАТЬЯНА Prox. 84.0TriphasicNormalATA Prox. 66.0TriphasicNormal DPA 91TriphasicNormalDPA 62TriphasicNormal Findings Grayscale images of the bilateral lower extremity arterial vessels demonstrates mild to moderate diff use atherosclerosis. Spectral waveforms are mostly triphasic and biphasic without any significant stenosis based on veloci ty criteria and three-vessel runoff below the knee. Critical Notification Critical Value: No <Conclusion> 1. No significant bilateral lower extremity arterial disease Signed by : Grover Katrapati, Electronically Approved : 03/26/2021 12:40:25
== END ==
LOC: ECHO 09:38
PROVIDERS: ATTEND Internal Medicine Cardiovascular Disease
DX: I35.1 Nonrheumatic aortic (valve) insufficiency (principal); I70.203 Unspecified atherosclerosis of native arteries of extremities, bilateral legs; I25.10 Atherosclerotic heart disease of native coronary artery without angina pectoris; I10 Essential (primary) hypertension; E78.5 Hyperlipidemia, unspecified; J45.909 Unspecified asthma, uncomplicated; Z95.1 Presence of aortocoronary bypass graft
CPT/HCPCS: 93306; 93925

== ENCOUNTER → 2021-09-25 | Outpatient (CLI) | payer MEDICARE ==
[~2021-09-25] MED LIST changes: +REGADENOSON 0.4 MG/5 ML DISP.SYRIN. IV ONE
--- NOTE | 2021-09-25 14:55 | RAD ---
MR#: [id number] Date of Study: 09/25/2021 Ordering Physician: LEIGH FISH, Referring Physician: ROSARIO BARBER Tech: RT Scott (R) (N) APPROVED REPORT Test Type: Pharmacological Stress Nurse/Tech: Kerrie Myers R.N. Test Indications: CAD Cardiac History: CABG,HTN,asthma Medications: See Electronic Medical Record Medical History: See Electronic Medical Record Resting ECG: SR w/inverted T wave in lead III Resting Heart Rate: 66 bpm Resting Blood Pressure: 143/74mmHg Pretest Chest Pain: No chest pain Nurse/Tech Notes S1S2, lungs CTA Consent: The procedure was explained to the patient in lay terms. Informed consent was witnessed. Eliud eout was entered into [employer]. History and Stress Test performed by RT Scott (R) (N) Pharm. Details Pharmacologic stress testing was performed using 0.4mg per 5ml of regadenoson given intravenously ove r 7-10 seconds. Stress Symptoms SOA POST EXERCISE Reason for Termination: Infusion complete Max HR: 72 bpm Max Blood Pressure: 157/65mmHg Blood Pressure response to exercise: Normal blood pressure response during stress. Heart Rate response to exercise: wnl Chest Pain: No. Arrhythmia: No. ST Change: No. INTERPRETATION Stress EKG Conclusion: No evidence of stress induced EKG changes. Imaging Protocol IMAGE PROTOCOL: Rest Tc-99m/stress Tc-99m 1 day Rest: Stress: Viability: Radiopharm.Tc99m HcwxtxyvpZs46c Sestamibi Dose10.1mCi 32mCi Duration 13min. 13min. Img Date 09/25/2021 09/25/2021 Inj-Img Qlhc25whw. 60min. Rest Admin Site:IV - Right AntecubitalAdministrator:RT Zara ChavezR)(N) Stress Admin Site: IV - Right AntecubitalAdministrator: ROSARIO MahanTCChris, ARRT (R)(N) STRESS DATA End Diast. Vol.122.0mlLVEDV index BSA53.0ml End Syst. Vol.39.0mlLVESV index BSA17.0ml Myocardial Slqz830.0gEject. Slwvdlup60.0% Stress Scores Regional WT0.00Summed WT1.00 Regional WM0.00Summed WM5.00 The rest and stress images show normal perfusion, normal contraction and thickening. LV Perf. Quant 17 Seg. SSS0.00 17 Seg. SRS5.00 17 Seg. SDS0.00 Stress Defect Extent (% LAD)0.00Rest Defect Extent (% LAD)0.00Rev. Defect Extent (% LAD)0.00 Stress Defect Extent (% LCX) 0.00Rest Defect Extent (% LCX)41.30Rev. Defect Extent (% LCX)0.00 Stress Defect Extent (% RCA)0.00Rest Defect Extent (% RCA)0.00Rev. Defect Extent (% RCA)0.00 Stress Defect Extent (% ALEX)0.00Rest Defect Extent (% ALEX)7.20Rev. Defect Extent (% ALEX)0.00 Other Information Quality:Fair Risk Assessment: Low Risk Conclusion 1. No evidence of EKG changes with stress testing. 2. Normal perfusion at stress/rest. 3. Low risk study. 4. EF > 60%. Signed by : Grover Parks, Electronically Approved : 09/25/2021 14:55:16
== END ==
LOC: NM 08:03
PROVIDERS: ATTEND Internal Medicine Cardiovascular Disease
DX: I25.10 Atherosclerotic heart disease of native coronary artery without angina pectoris (principal)
CPT/HCPCS: 78452; 93017; A9500; J2785